=== PATIENT | male | born 1930 | race Asian ===

== ENCOUNTER 2017-09-08 21:57 | Inpatient (IN) | payer MEDICARE, MEDICAID ==
[~2017-09-08] VITALS: Ht 167.6 cm; Wt 72.6 kg
[~2017-09-08 21:57] MED LIST: Glycopyrrolate 0.2mg/ml 1ml Vial ONE; LR 1000ml ONE; Midazolam 2mg/2ml Inj ONE; NS Irrig 1000ml ONE; NS Irrig 4000ml IRRIG ONE; Neostigmine 1mg/ml 10ml Inj ONE; Propofol 200mg/20ml IV ONE; Sterile Water Irrig 1000ml IRRIG ONE; Zemuron 50mg/5ml Inj IV ONE; fentaNYL 100 mcg/2 mL IV ONE
[2017-09-08 22:00] VITALS: BP 118/78
[2017-09-08] MEDS ORDERED: Morphine Sulfate 2mg/ml Inj IVP ONE (22:15)
[2017-09-08 22:37] LABS: APPEARANCE,URINE CLOUDY; BILIRUBIN, URINE NEGATIVE (NEGATIVE); GLUCOSE, URINE (UA) NEGATIVE (NEGATIVE); KETONES,URINE NEGATIVE (NEGATIVE); LEUKOCYTE ESTERASE ,URINE 1+ (NEGATIVE); NITRITE,URINE NEGATIVE (NEGATIVE); PH,URINE 6.5 (4.5-8.0); PROTEIN,URINE 4+ (NEGATIVE); UROBILINOGEN,URINE NORMAL MG/DL (0.0-1.0)
[2017-09-08 22:39] LABS: COLOR,URINE RED
[2017-09-08 22:53] LABS: BASOPHILS % (AUTO) 1.8 % (0.0-2.0); EOSINOPHILS % (AUTO) 2.3 % (0.0-3.0); HEMATOCRIT 36.2 % (42.0-52.0); HEMOGLOBIN 11.4 G/DL (14.2-18.0); MEAN CORPUSCULAR VOLUME 99 FL (80-99); MONOCYTES % (AUTO) 8.6 % (1.0-10.0); NEUTROPHILS % (AUTO) 72.2 % (45.0-75.0); PLATELET COUNT 127 K/UL (150-450); RED BLOOD COUNT 3.65 M/UL (4.70-6.10); RED CELL DISTRIBUTION WIDTH 11.9 % (11.6-14.8); WHITE BLOOD COUNT 3.8 K/UL (4.8-10.8)
[2017-09-08 23:00] VITALS: BP 122/73
[2017-09-08 23:02] LABS: ANION GAP 9 mmol/L (5-15); BLOOD UREA NITROGEN 35 mg/dL (7-18); CALCIUM 7.9 MG/DL (8.5-10.1); CARBON DIOXIDE 23 MMOL/L (21-32); CHLORIDE 107 MMOL/L (98-107); POTASSIUM 4.3 MMOL/L (3.5-5.1); SODIUM 139 MMOL/L (136-145)
[2017-09-08 23:14] LABS: ALANINE AMINOTRANSFERASE 37 U/L (12-78); ALBUMIN 3.9 G/DL (3.4-5.0); ALBUMIN/GLOBULIN RATIO 1.1 (1.0-2.7); ALKALINE PHOSPHATASE 105 U/L (46-116); ASPARTATE AMINO TRANSFERASE 51 U/L (15-37); BILIRUBIN,TOTAL 1.4 MG/DL (0.2-1.0)
[2017-09-08] MEDS ORDERED: cefTRIAXone 1 GM in NS 55 ML IVPB ONE (23:15)
[2017-09-08 23:16] LABS: BILIRUBIN,DIRECT 0.2 MG/DL (0.0-0.3)
[2017-09-08] MEDS ORDERED: NS 55ml IV ONE (23:34)
[2017-09-09 00:05] VITALS: BP 120/75
[2017-09-09] MEDS ORDERED: Morphine Sulfate 2mg/ml Inj IVP PRN (01:00)
[2017-09-09 01:10] VITALS: BP 125/67
[2017-09-09 04:00] VITALS: BP 125/67
--- NOTE | 2017-09-09 04:13 | Emergency Room Report ---
History of Present Illness General Chief Complaint: Male Urogenital Problems Source: Patient Present Illness HPI 87-year-old male presents to ED for evaluation. Patient is brought from restaurant with family. Patient is complaining of urinary retention for last 4 hours. Family states patient has a history of kidney stones. EMS states that patient had blood on the ambulance gurney. Coming from the penis. Patient notes 10 out of 10 sharp lower abdominal pain. Nonradiating. Denies fevers or chills. Denies flank pain. Denies chest pain or shortness of breath. No other aggravating relieving factors. Denies any other associated symptom Allergies: Coded Allergies: No Known Allergies (Unverified , 09/08/17) Patient History Past Medical History: other - kidney stones Past Surgical History: none Pertinent Family History: none Social History: Denies: smoking, alcohol use, drug use Immunizations: UTD Reviewed Nursing Documentation: PMH: Agreed, PSxH: Agreed Nursing Documentation-PMH Past Medical History: No History, Except For Hx Cardiac Problems: Yes - IRREGULAR HEARTBEAT Hx Hypertension: No Hx Pacemaker: No Hx Cancer: No Hx Gastrointestinal Problems: No Hx Neurological Problems: No Review of Systems All Other Systems: negative except mentioned in HPI Physical Exam Vital Signs Date Time Temp Pulse Resp B/P (MAP) Pulse Ox O2 Delivery O2 Flow Rate FiO2 09/08/17 21:46 98.1 92 20 115/83 98 Room Air Sp02 EP Interpretation: reviewed, normal General Appearance: alert, GCS 15, non-toxic, mild distress, thin Head: normocephalic, atraumatic Eyes: bilateral eye normal inspection, bilateral eye PERRL ENT: hearing grossly normal, normal pharynx, no angioedema, normal voice Neck: full range of motion, supple/symm/no masses Respiratory: chest non-tender, lungs clear, normal breath sounds, speaking full sentences Cardiovascular #1: regular rate, rhythm, no edema Cardiovascular #2: 2+ carotid (R), 2+ carotid (L), 2+ radial (R), 2+ radial (L) , 2+ dorsalis pedis (R), 2+ dorsalis pedis (L) Gastrointestinal: normal bowel sounds, soft, non-distended, no guarding, no rebound, tenderness Rectal: deferred Genitourinary: normal inspection, no CVA tenderness Musculoskeletal: back normal, gait/station normal, normal range of motion, non- tender Neurologic: alert, oriented x3, responsive, motor strength/tone normal, sensory intact, speech normal Psychiatric: judgement/insight normal, memory normal, mood/affect normal, no suicidal/homicidal ideation Reflexes: 3+ bicep (R), 3+ bicep (L), 3+ tricep (R), 3+ tricep (L), 3+ knee (R) , 3+ knee (L) Skin: normal color, no rash, warm/dry, well hydrated Lymphatic: no adenopathy Medical Decision Making Diagnostic Impression: Primary Impression: Hematuria Qualified Codes: R31.0 - Gross hematuria Additional Impression: Bladder mass ER Course Hospital Course 87 yo M presents with urinary retention, hematuria Differential diagnoses include: BPH, cystitis, pyelonephritis, kidney stone Clinical course Patient placed on stretcher. lunchroom monitor. After initial history and physical I ordered labs, IV fluids, UA, pain medication and CT scan souza catheter placed Labs - no leukocytosis, Hb/Hct stable, electrolyets ok, UA gross blood, some bacteria CT abdomen and pelvis - bladder mass noted, no kidney stones identified abx given Case discussed with Dr. Lorenz and he agreed to accept the patient to his service for further care and support I feel this is a highly complex case requiring extensive working including EKG/ Rhythm strip, Xray/CT/US, Blood/urine lab work, repeat exams while in ED, and administration of strong opiates/narcotics for pain control, admission to hospital or close patient follow up. Diagnosis - bladder mass, hematuria Patient admitted to floor in serious condition Labs Test 09/08/17 22:10 09/08/17 22:25 Urine Color Red Urine Appearance Cloudy Urine pH 6.5 (4.5-8.0) Urine Specific [place] 1.015 (1.005-1.035) Urine Protein 4+ (NEGATIVE) Urine Glucose (UA) Negative (NEGATIVE) Urine Ketones Negative (NEGATIVE) Urine Occult Blood 4+ (NEGATIVE) Urine Nitrite Negative (NEGATIVE) Urine Bilirubin Negative (NEGATIVE) Urine Urobilinogen Normal MG/DL (0.0-1.0) Urine Leukocyte Esterase 1+ (NEGATIVE) Urine RBC Tntc /HPF (0 - 0) Urine WBC 2-4 /HPF (0 - 0) Urine Squamous Epithelial Cells Occasional /LPF Urine Bacteria Occasional /HPF (NONE) White Blood Count 3.8 K/UL (4.8-10.8) Red Blood Count 3.65 M/UL (4.70-6.10) Hemoglobin 11.4 G/DL (14.2-18.0) Hematocrit 36.2 % (42.0-52.0) Mean Corpuscular Volume 99 FL (80-99) Mean Corpuscular Hemoglobin 31.2 PG (27.0-31.0) Mean Corpuscular Hemoglobin Concent 31.5 G/DL (32.0-36.0) Red Cell Distribution Width 11.9 % (11.6-14.8) Platelet Count 127 K/UL (150-450) Mean Platelet Volume 7.1 FL (6.5-10.1) Neutrophils (%) (Auto) 72.2 % (45.0-75.0) Lymphocytes (%) (Auto) 15.0 % (20.0-45.0) Monocytes (%) (Auto) 8.6 % (1.0-10.0) Eosinophils (%) (Auto) 2.3 % (0.0-3.0) Basophils (%) (Auto) 1.8 % (0.0-2.0) Sodium Level 139 MMOL/L (136-145) Potassium Level 4.3 MMOL/L (3.5-5.1) Chloride Level 107 MMOL/L (98-107) Carbon Dioxide Level 23 MMOL/L (21-32) Anion Gap 9 mmol/L (5-15) Blood Urea Nitrogen 35 mg/dL (7-18) Creatinine 1.0 MG/DL (0.55-1.30) Estimat Glomerular Filtration Rate mL/min (>60) Glucose Level 148 MG/DL (74-106) Calcium Level 7.9 MG/DL (8.5-10.1) Total Bilirubin 1.4 MG/DL (0.2-1.0) Direct Bilirubin 0.2 MG/DL (0.0-0.3) Aspartate Amino Transf (AST/SGOT) 51 U/L (15-37) Alanine Aminotransferase (ALT/SGPT) 37 U/L (12-78) Alkaline Phosphatase 105 U/L (46-116) Total Protein 7.4 G/DL (6.4-8.2) Albumin 3.9 G/DL (3.4-5.0) Globulin 3.5 g/dL Albumin/Globulin Ratio 1.1 (1.0-2.7) Lipase 188 U/L (73-393) CT/MRI/US Diagnostic Results CT/MRI/US Diagnostic Results : Imaging Test Ordered: CT A/P Impression Large bladder mass along the right posterior bladder wall measuring approximately 2.9 x 5.5 centimeters. Findings are suspicious for urothelial neoplasm and bladder carcinoma should be excluded. Last Vital Signs Date Time Temp Pulse Resp B/P (MAP) Pulse Ox O2 Delivery O2 Flow Rate FiO2 09/09/17 01:10 97.6 75 18 125/67 99 Room Air Status: improved Disposition: ADMITTED INPATIENT Condition: Serious Referrals: NOT CHOSEN DARIEL/,REFERRING (PCP) LITTLE PRATER M.D. Sep 09, 2017 04:13
[2017-09-09 07:44] LABS: BASOPHILS % (AUTO) 1.2 % (0.0-2.0); EOSINOPHILS % (AUTO) 2.1 % (0.0-3.0); HEMATOCRIT 32.8 % (42.0-52.0); HEMOGLOBIN 10.7 G/DL (14.2-18.0); LYMPHOCYTES % (AUTO) 27.6 % (20.0-45.0); MEAN CORPUSCULAR VOLUME 99 FL (80-99); MONOCYTES % (AUTO) 12.3 % (1.0-10.0); NEUTROPHILS % (AUTO) 56.7 % (45.0-75.0); PLATELET COUNT 111 K/UL (150-450); RED BLOOD COUNT 3.32 M/UL (4.70-6.10); WHITE BLOOD COUNT 4.3 K/UL (4.8-10.8)
[2017-09-09 07:49] LABS: ANION GAP 9 mmol/L (5-15); BLOOD UREA NITROGEN 33 mg/dL (7-18); CALCIUM 7.8 MG/DL (8.5-10.1); CARBON DIOXIDE 24 MMOL/L (21-32); CHLORIDE 109 MMOL/L (98-107); CREATININE 0.8 MG/DL (0.55-1.30); POTASSIUM 4.3 MMOL/L (3.5-5.1); SODIUM 142 MMOL/L (136-145)
[2017-09-09 08:00] VITALS: BP 126/59
--- NOTE | 2017-09-09 11:22 | Infectious Diseases Prog Note ---
Assessment/Plan Problems: (1) Pyelonephritis Assessment & Plan: will send urine culture and start ceftriaxon empiric coverage, CT abdomen ruled out abscess and stone (2) Hematuria Assessment & Plan: rule out malignancy VS stone , recommend urologist for further evaluation (3) Urinary retention Assessment & Plan: Rule out obstruction , BPH VS stone. will order renal US , recommend urology consult Subjective Allergies: Coded Allergies: No Known Allergies (Unverified , 09/08/17) Objective Vital Signs Last 24 Hour Vital Signs Date Time Temp Pulse Resp B/P (MAP) Pulse Ox O2 Delivery O2 Flow Rate FiO2 09/09/17 08:00 97.5 73 20 126/59 99 Room Air 09/09/17 04:00 97.2 62 16 125/67 98 Room Air 09/09/17 01:10 97.6 75 18 125/67 99 Room Air 09/09/17 01:03 98.3 82 16 120/75 98 Room Air 09/09/17 00:05 98.3 82 16 120/75 98 Room Air 09/08/17 23:20 98.0 09/08/17 23:00 98.4 80 16 122/73 98 Room Air 09/08/17 22:00 98.1 88 18 118/78 99 Room Air 09/08/17 21:46 98.1 92 20 115/83 98 Room Air Height (Feet): 5 Height (Inches): 8.00 Weight (Pounds): 160 Laboratory Tests Test 09/08/17 22:10 09/08/17 22:25 09/09/17 05:25 Urine Color Red Urine Appearance Cloudy Urine pH 6.5 (4.5-8.0) Urine Specific [place] 1.015 (1.005-1.035) Urine Protein 4+ (NEGATIVE) H Urine Glucose (UA) Negative (NEGATIVE) Urine Ketones Negative (NEGATIVE) Urine Occult Blood 4+ (NEGATIVE) H Urine Nitrite Negative (NEGATIVE) Urine Bilirubin Negative (NEGATIVE) Urine Urobilinogen Normal MG/DL (0.0-1.0) Urine Leukocyte Esterase 1+ (NEGATIVE) H Urine RBC Tntc /HPF (0 - 0) H Urine WBC 2-4 /HPF (0 - 0) Urine Squamous Epithelial Cells Occasional /LPF Urine Bacteria Occasional /HPF (NONE) White Blood Count 3.8 K/UL (4.8-10.8) L 4.3 K/UL (4.8-10.8) L Red Blood Count 3.65 M/UL (4.70-6.10) L 3.32 M/UL (4.70-6.10) L Hemoglobin 11.4 G/DL (14.2-18.0) L 10.7 G/DL (14.2-18.0) L Hematocrit 36.2 % (42.0-52.0) L 32.8 % (42.0-52.0) L Mean Corpuscular Volume 99 FL (80-99) 99 FL (80-99) Mean Corpuscular Hemoglobin 31.2 PG (27.0-31.0) H 32.3 PG (27.0-31.0) H Mean Corpuscular Hemoglobin Concent 31.5 G/DL (32.0-36.0) L 32.7 G/DL (32.0-36.0) Red Cell Distribution Width 11.9 % (11.6-14.8) 12.0 % (11.6-14.8) Platelet Count 127 K/UL (150-450) L 111 K/UL (150-450) L Mean Platelet Volume 7.1 FL (6.5-10.1) 7.0 FL (6.5-10.1) Neutrophils (%) (Auto) 72.2 % (45.0-75.0) 56.7 % (45.0-75.0) Lymphocytes (%) (Auto) 15.0 % (20.0-45.0) L 27.6 % (20.0-45.0) Monocytes (%) (Auto) 8.6 % (1.0-10.0) 12.3 % (1.0-10.0) H Eosinophils (%) (Auto) 2.3 % (0.0-3.0) 2.1 % (0.0-3.0) Basophils (%) (Auto) 1.8 % (0.0-2.0) 1.2 % (0.0-2.0) Sodium Level 139 MMOL/L (136-145) 142 MMOL/L (136-145) Potassium Level 4.3 MMOL/L (3.5-5.1) 4.3 MMOL/L (3.5-5.1) Chloride Level 107 MMOL/L (98-107) 109 MMOL/L (98-107) H Carbon Dioxide Level 23 MMOL/L (21-32) 24 MMOL/L (21-32) Anion Gap 9 mmol/L (5-15) 9 mmol/L (5-15) Blood Urea Nitrogen 35 mg/dL (7-18) H 33 mg/dL (7-18) H Creatinine 1.0 MG/DL (0.55-1.30) 0.8 MG/DL (0.55-1.30) Estimat Glomerular Filtration Rate mL/min (>60) mL/min (>60) Glucose Level 148 MG/DL (74-106) H 96 MG/DL (74-106) Calcium Level 7.9 MG/DL (8.5-10.1) L 7.8 MG/DL (8.5-10.1) L Total Bilirubin 1.4 MG/DL (0.2-1.0) H Direct Bilirubin 0.2 MG/DL (0.0-0.3) Aspartate Amino Transf (AST/SGOT) 51 U/L (15-37) H Alanine Aminotransferase (ALT/SGPT) 37 U/L (12-78) Alkaline Phosphatase 105 U/L (46-116) Total Protein 7.4 G/DL (6.4-8.2) Albumin 3.9 G/DL (3.4-5.0) Globulin 3.5 g/dL Albumin/Globulin Ratio 1.1 (1.0-2.7) Lipase 188 U/L (73-393) Current Medications Medications (Trade) Dose Ordered Sig/Josselin Route PRN Reason Start Time Stop Time Status Last Admin Dose Admin Acetaminophen (Tylenol) 650 mg Q4H PRN ORAL Mild Pain/Temp > 100.5 09/09/17 01:00 10/09/17 00:59 Ceftriaxone Sodium 1 gm/ Dextrose 55 ml @ 110 mls/hr Q24H IVPB 09/09/17 21:00 09/16/17 20:59 Dextrose (Dextrose 50%) STAT PRN IV Hypoglycemia 09/09/17 01:00 10/09/17 00:59 Morphine Sulfate (Morphine Sulfate) 2 mg Q4H PRN IVP MOD-SEVERE PAIN 4-10 09/09/17 01:00 09/16/17 00:59 Ondansetron HCl (Zofran) 4 mg Q6H PRN IVP Nausea & Vomiting 09/09/17 01:00 10/09/17 00:59 Sodium Chloride 1,000 ml @ 80 mls/hr [id number] IV 09/09/17 09:00 10/09/17 08:59 Michelle Villarreal M.D. Sep 09, 2017 11:22
--- NOTE | 2017-09-09 12:01 | History and Physical ---
History of Present Illness General Date patient seen: Sep 09, 2017 Reason for Hospitalization: Male Urogenital Problems Present Illness HPI 87 y/o male with PMH for HTN, dyslipidemia, and cardiac arrhythmia who presented to the ED c/o abdominal pain. Patient also reported hematuria and urinary retention. Per family report, he has history of renal stones. He denies flank pain, nausea or vomiting. In the ED, patient is noted to have bladder mass on CT A/P with clots. [place] catheter inserted with gross hematuria. Patient continues to have lower abdominal pain. Allergies: Coded Allergies: No Known Allergies (Unverified , 09/08/17) Patient History History Provided By: Patient, Medical Record Healthcare decision maker Resuscitation status Advanced Directive on File Past Medical/Surgical History Past Medical/Surgical History: (1) HTN (hypertension) Review of Systems All Other Systems: negative except mentioned in HPI Physical Exam General Appearance: no apparent distress, alert, thin HEENT: normocephalic, atraumatic Neck: supple Respiratory/Chest: lungs clear Cardiovascular/Chest: normal rate, regular rhythm Abdomen: soft, tender Extremities: no edema Neurologic: alert, oriented x 3 Last 24 Hour Vital Signs Date Time Temp Pulse Resp B/P (MAP) Pulse Ox O2 Delivery O2 Flow Rate FiO2 09/09/17 08:00 97.5 73 20 126/59 99 Room Air 09/09/17 04:00 97.2 62 16 125/67 98 Room Air 09/09/17 01:10 97.6 75 18 125/67 99 Room Air 09/09/17 01:03 98.3 82 16 120/75 98 Room Air 09/09/17 00:05 98.3 82 16 120/75 98 Room Air 09/08/17 23:20 98.0 09/08/17 23:00 98.4 80 16 122/73 98 Room Air 09/08/17 22:00 98.1 88 18 118/78 99 Room Air 09/08/17 21:46 98.1 92 20 115/83 98 Room Air Intake and Output 09/08/17 09/09/17 19:00 07:00 Intake Total 1295 ml Output Total 750 ml Balance 545 ml Intake Oral 240 ml IV Total 1055 ml Output Urine Total 750 ml # Voids 1 Laboratory Tests Test 09/08/17 22:10 09/08/17 22:25 09/09/17 05:25 Urine Color Red Urine Appearance Cloudy Urine pH 6.5 (4.5-8.0) Urine Specific [place] 1.015 (1.005-1.035) Urine Protein 4+ (NEGATIVE) H Urine Glucose (UA) Negative (NEGATIVE) Urine Ketones Negative (NEGATIVE) Urine Occult Blood 4+ (NEGATIVE) H Urine Nitrite Negative (NEGATIVE) Urine Bilirubin Negative (NEGATIVE) Urine Urobilinogen Normal MG/DL (0.0-1.0) Urine Leukocyte Esterase 1+ (NEGATIVE) H Urine RBC Tntc /HPF (0 - 0) H Urine WBC 2-4 /HPF (0 - 0) Urine Squamous Epithelial Cells Occasional /LPF Urine Bacteria Occasional /HPF (NONE) White Blood Count 3.8 K/UL (4.8-10.8) L 4.3 K/UL (4.8-10.8) L Red Blood Count 3.65 M/UL (4.70-6.10) L 3.32 M/UL (4.70-6.10) L Hemoglobin 11.4 G/DL (14.2-18.0) L 10.7 G/DL (14.2-18.0) L Hematocrit 36.2 % (42.0-52.0) L 32.8 % (42.0-52.0) L Mean Corpuscular Volume 99 FL (80-99) 99 FL (80-99) Mean Corpuscular Hemoglobin 31.2 PG (27.0-31.0) H 32.3 PG (27.0-31.0) H Mean Corpuscular Hemoglobin Concent 31.5 G/DL (32.0-36.0) L 32.7 G/DL (32.0-36.0) Red Cell Distribution Width 11.9 % (11.6-14.8) 12.0 % (11.6-14.8) Platelet Count 127 K/UL (150-450) L 111 K/UL (150-450) L Mean Platelet Volume 7.1 FL (6.5-10.1) 7.0 FL (6.5-10.1) Neutrophils (%) (Auto) 72.2 % (45.0-75.0) 56.7 % (45.0-75.0) Lymphocytes (%) (Auto) 15.0 % (20.0-45.0) L 27.6 % (20.0-45.0) Monocytes (%) (Auto) 8.6 % (1.0-10.0) 12.3 % (1.0-10.0) H Eosinophils (%) (Auto) 2.3 % (0.0-3.0) 2.1 % (0.0-3.0) Basophils (%) (Auto) 1.8 % (0.0-2.0) 1.2 % (0.0-2.0) Sodium Level 139 MMOL/L (136-145) 142 MMOL/L (136-145) Potassium Level 4.3 MMOL/L (3.5-5.1) 4.3 MMOL/L (3.5-5.1) Chloride Level 107 MMOL/L (98-107) 109 MMOL/L (98-107) H Carbon Dioxide Level 23 MMOL/L (21-32) 24 MMOL/L (21-32) Anion Gap 9 mmol/L (5-15) 9 mmol/L (5-15) Blood Urea Nitrogen 35 mg/dL (7-18) H 33 mg/dL (7-18) H Creatinine 1.0 MG/DL (0.55-1.30) 0.8 MG/DL (0.55-1.30) Estimat Glomerular Filtration Rate mL/min (>60) mL/min (>60) Glucose Level 148 MG/DL (74-106) H 96 MG/DL (74-106) Calcium Level 7.9 MG/DL (8.5-10.1) L 7.8 MG/DL (8.5-10.1) L Total Bilirubin 1.4 MG/DL (0.2-1.0) H Direct Bilirubin 0.2 MG/DL (0.0-0.3) Aspartate Amino Transf (AST/SGOT) 51 U/L (15-37) H Alanine Aminotransferase (ALT/SGPT) 37 U/L (12-78) Alkaline Phosphatase 105 U/L (46-116) Total Protein 7.4 G/DL (6.4-8.2) Albumin 3.9 G/DL (3.4-5.0) Globulin 3.5 g/dL Albumin/Globulin Ratio 1.1 (1.0-2.7) Lipase 188 U/L (73-393) Height (Feet): 5 Height (Inches): 8.00 Weight (Pounds): 160 Medications Current Medications Medications (Trade) Dose Ordered Sig/Josselni Route PRN Reason Start Time Stop Time Status Last Admin Dose Admin Acetaminophen (Tylenol) 650 mg Q4H PRN ORAL Mild Pain/Temp > 100.5 09/09/17 01:00 10/09/17 00:59 Ceftriaxone Sodium 1 gm/ Dextrose 55 ml @ 110 mls/hr Q24H IVPB 09/09/17 21:00 09/16/17 20:59 Dextrose (Dextrose 50%) STAT PRN IV Hypoglycemia 09/09/17 01:00 10/09/17 00:59 Morphine Sulfate (Morphine Sulfate) 2 mg Q4H PRN IVP MOD-SEVERE PAIN 4-10 09/09/17 01:00 09/16/17 00:59 Ondansetron HCl (Zofran) 4 mg Q6H PRN IVP Nausea & Vomiting 09/09/17 01:00 10/09/17 00:59 Potassium Chloride 10 meq/ Dextrose/Sodium Chloride 1,005 ml @ 75 mls/hr [id number] IV 09/09/17 13:00 10/09/17 12:59 Assessment/Plan Problem List: (1) Bladder mass ICD Codes: N32.89 - Other specified disorders of bladder SNOMED: 997082714 (2) Hematuria ICD Codes: R31.9 - Hematuria, unspecified SNOMED: 30996432 Qualifiers: Qualified Codes: R31.0 - Gross hematuria (3) Urinary retention ICD Codes: R33.9 - Retention of urine, unspecified SNOMED: 434132610 (4) HTN (hypertension) ICD Codes: I10 - Essential (primary) hypertension SNOMED: 49944743 (5) Arrhythmia ICD Codes: I49.9 - Cardiac arrhythmia, unspecified SNOMED: 575813376 Assessment/Plan Resume home meds. Hold Eliquis. Patient states that he has not taken his home medications in 2 days (since mon). He confirms not taking Eliquis for last 2 days. IVF. Keep NPO for possible surgery. Get insurance auth for procedure. Pain management. ID consulted for possible UTI/Pyelo. Dr. Bamshad now following. [place] cath in place. Bladder irrigation. Will need emergent cystoscopy and possible TURP and bladder mass resection. Will check preoperative PT/PTT, CXR, ECG. Cardio consulted for cardiac clearance. Dr. Tirado called. D/w Dr. Lorenz who agrees with plan. JO-ANN GONZALEZ Sep 09, 2017 12:01
[2017-09-09 12:07] LABS: INR 1.1 (0.9-1.1)
[2017-09-09 12:29] VITALS: BP 148/73
[2017-09-09] MEDS ORDERED: Potassium Chloride 10 MEQ in D5 1/2NS 1,000 ML IV SCH (13:00)
--- NOTE | 2017-09-09 15:21 | Cardiac Electrophysiology PN ---
Subjective Subjective [id number].Transfer to tele. Stat ECHO. Objective Last 24 Hour Vital Signs Date Time Temp Pulse Resp B/P (MAP) Pulse Ox O2 Delivery O2 Flow Rate FiO2 09/09/17 12:29 97.2 68 20 148/73 100 Room Air 09/09/17 08:00 97.5 73 20 126/59 99 Room Air 09/09/17 04:00 97.2 62 16 125/67 98 Room Air 09/09/17 01:10 97.6 75 18 125/67 99 Room Air 09/09/17 01:03 98.3 82 16 120/75 98 Room Air 09/09/17 00:05 98.3 82 16 120/75 98 Room Air 09/08/17 23:20 98.0 09/08/17 23:00 98.4 80 16 122/73 98 Room Air 09/08/17 22:00 98.1 88 18 118/78 99 Room Air 09/08/17 21:46 98.1 92 20 115/83 98 Room Air Intake and Output 09/08/17 09/09/17 19:00 07:00 Intake Total 1295 ml Output Total 750 ml Balance 545 ml Intake Oral 240 ml IV Total 1055 ml Output Urine Total 750 ml # Voids 1 Laboratory Tests Test 09/08/17 22:10 09/08/17 22:25 09/09/17 05:25 09/09/17 11:45 Urine Color Red Urine Appearance Cloudy Urine pH 6.5 (4.5-8.0) Urine Specific [place] 1.015 (1.005-1.035) Urine Protein 4+ (NEGATIVE) H Urine Glucose (UA) Negative (NEGATIVE) Urine Ketones Negative (NEGATIVE) Urine Occult Blood 4+ (NEGATIVE) H Urine Nitrite Negative (NEGATIVE) Urine Bilirubin Negative (NEGATIVE) Urine Urobilinogen Normal MG/DL (0.0-1.0) Urine Leukocyte Esterase 1+ (NEGATIVE) H Urine RBC Tntc /HPF (0 - 0) H Urine WBC 2-4 /HPF (0 - 0) Urine Squamous Epithelial Cells Occasional /LPF Urine Bacteria Occasional /HPF (NONE) White Blood Count 3.8 K/UL (4.8-10.8) L 4.3 K/UL (4.8-10.8) L Red Blood Count 3.65 M/UL (4.70-6.10) L 3.32 M/UL (4.70-6.10) L Hemoglobin 11.4 G/DL (14.2-18.0) L 10.7 G/DL (14.2-18.0) L Hematocrit 36.2 % (42.0-52.0) L 32.8 % (42.0-52.0) L Mean Corpuscular Volume 99 FL (80-99) 99 FL (80-99) Mean Corpuscular Hemoglobin 31.2 PG (27.0-31.0) H 32.3 PG (27.0-31.0) H Mean Corpuscular Hemoglobin Concent 31.5 G/DL (32.0-36.0) L 32.7 G/DL (32.0-36.0) Red Cell Distribution Width 11.9 % (11.6-14.8) 12.0 % (11.6-14.8) Platelet Count 127 K/UL (150-450) L 111 K/UL (150-450) L Mean Platelet Volume 7.1 FL (6.5-10.1) 7.0 FL (6.5-10.1) Neutrophils (%) (Auto) 72.2 % (45.0-75.0) 56.7 % (45.0-75.0) Lymphocytes (%) (Auto) 15.0 % (20.0-45.0) L 27.6 % (20.0-45.0) Monocytes (%) (Auto) 8.6 % (1.0-10.0) 12.3 % (1.0-10.0) H Eosinophils (%) (Auto) 2.3 % (0.0-3.0) 2.1 % (0.0-3.0) Basophils (%) (Auto) 1.8 % (0.0-2.0) 1.2 % (0.0-2.0) Sodium Level 139 MMOL/L (136-145) 142 MMOL/L (136-145) Potassium Level 4.3 MMOL/L (3.5-5.1) 4.3 MMOL/L (3.5-5.1) Chloride Level 107 MMOL/L (98-107) 109 MMOL/L (98-107) H Carbon Dioxide Level 23 MMOL/L (21-32) 24 MMOL/L (21-32) Anion Gap 9 mmol/L (5-15) 9 mmol/L (5-15) Blood Urea Nitrogen 35 mg/dL (7-18) H 33 mg/dL (7-18) H Creatinine 1.0 MG/DL (0.55-1.30) 0.8 MG/DL (0.55-1.30) Estimat Glomerular Filtration Rate mL/min (>60) mL/min (>60) Glucose Level 148 MG/DL (74-106) H 96 MG/DL (74-106) Calcium Level 7.9 MG/DL (8.5-10.1) L 7.8 MG/DL (8.5-10.1) L Total Bilirubin 1.4 MG/DL (0.2-1.0) H Direct Bilirubin 0.2 MG/DL (0.0-0.3) Aspartate Amino Transf (AST/SGOT) 51 U/L (15-37) H Alanine Aminotransferase (ALT/SGPT) 37 U/L (12-78) Alkaline Phosphatase 105 U/L (46-116) Total Protein 7.4 G/DL (6.4-8.2) Albumin 3.9 G/DL (3.4-5.0) Globulin 3.5 g/dL Albumin/Globulin Ratio 1.1 (1.0-2.7) Lipase 188 U/L (73-393) Prothrombin Time 11.1 SEC (9.30-11.50) Prothromb Time International Ratio 1.1 (0.9-1.1) Activated Partial Thromboplast Time 28 SEC (23-33) ANIYAH LANGLEY Sep 09, 2017 15:21
[2017-09-09] MEDS ORDERED: METOPROLOL TART25 MG ORAL (15:57)
[2017-09-09] MEDS ORDERED: LOSARTAN POTASS25 MG ORAL (15:57)
[2017-09-09] MEDS ORDERED: FUROSEMIDE40 MG ORAL (15:57)
[2017-09-09] MEDS ORDERED: ELIQUIS2.5 MG PO (15:57)
[2017-09-09] MEDS ORDERED: LIPITOR10 MG ORAL (15:57)
--- NOTE | 2017-09-09 18:15 | Consultation ---
DATE OF CONSULTATION: 09/09/2017 CONSULTING PHYSICIAN: Jesse Vegas M.D. REFERRING PHYSICIAN: Cruz Lorenz M.D. REASON FOR CONSULTATION: Evaluation of gross hematuria. HISTORY OF PRESENT ILLNESS: This is an 87-year-old male, who came to the hospital because of retention and hematuria. [place] was placed. He has had clots. He had a CT scan that showed a bladder mass. Urology evaluation requested. PAST MEDICAL HISTORY: Significant for history of coronary artery disease. Other history is unknown. PAST SURGICAL HISTORY: Unknown. CURRENT MEDICATIONS: In the hospital, the patient is on Toprol, Cozaar, Rocephin, Lipitor, morphine, and Tylenol. Apparently at home, he has been on Eliquis. However, the patient states that he has not taken Eliquis for at least 2 days. REVIEW OF SYSTEMS: Apparently, he had kidney stones in the past. PHYSICAL EXAMINATION: GENERAL: An elderly male. VITAL SIGNS: Temperature is 97.5 degrees, blood pressure is 126/59. ABDOMEN: Shows some suprapubic fullness. There is a 15-[place]. Urine is grossly dark bloody. LABORATORY DATA: White count is 4.3, hemoglobin 10.7, and platelets are 111. BUN is 33, creatinine 0.8. There is no PT, PTT. UA shows 4+ protein, too numerous to count RBCs, 2 to 4 WBCs, 1+ leukocyte esterase. DIAGNOSTIC IMAGING STUDIES: The patient apparently did have a CT scan, the final report is pending. However, apparently the preliminary report did show about a 5 cm bladder mass on the right posterior bladder wall. IMPRESSION: 1. Gross hematuria. 2. Bladder mass, rule out bladder carcinoma. 3. Pyuria. 4. Proteinuria. 5. Urinary retention. PLAN AND DISCUSSION: The patient was evaluated at the bedside. The existing [place] catheter was occluded and was unable to be irrigated. As such, it was removed. A 24-[place] catheter was placed. I was able to irrigate clots out and the patient was started on continuous bladder irrigation. I did talk to the patient extensively through an chain sales consultant. 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 He will need to have transurethral resection and fulguration of the tumor to control the bleeding, most likely needs to be done on an urgent basis. He has been on Eliquis at home. However, he states that he has not taken any medications for two days, and as such, I did talk to the pharmacy and with primary care doctor, and probably within the next 24 hours, the effect should be gone and he should be okay for having procedure. I will set him up for a TURBT. Again, this was discussed with the patient in extensive detail including possible risks and complications. Thank you for this consultation. Jesse Vegas M.D. DR: Rai JOB#: [id number] CC:
[2017-09-09] MEDS: Potassium Chloride 10 MEQ in D5 1/2NS 1,000 ML IV SCH (19:00)
[2017-09-09 19:45] LABS: HEMOGLOBIN 10.1 G/DL (14.2-18.0); LYMPHOCYTES % (AUTO) 15.7 % (20.0-45.0); MEAN CORPUSCULAR VOLUME 98 FL (80-99); MONOCYTES % (AUTO) 10.4 % (1.0-10.0); NEUTROPHILS % (AUTO) 71.9 % (45.0-75.0); PLATELET COUNT 112 K/UL (150-450); RED BLOOD COUNT 3.37 M/UL (4.70-6.10); RED CELL DISTRIBUTION WIDTH 11.7 % (11.6-14.8); WHITE BLOOD COUNT 5.9 K/UL (4.8-10.8)
[2017-09-09 20:00] VITALS: BP 145/69
[2017-09-09] MEDS: cefTRIAXone 1 GM in D5W 55 ML IVPB SCH (20:21)
--- NOTE | 2017-09-09 20:30 | Consultation ---
DATE OF CONSULTATION: 09/09/2017 INFECTIOUS DISEASE CONSULTATION CONSULTING PHYSICIAN: Michelle Villarreal M.D. REQUESTING PHYSICIAN: Cruz Lorenz M.D. REASON FOR CONSULTATION: Pyelonephritis, hematuria rule out genitourinary abscess, and recommendation for antibiotics treatment. HISTORY OF PRESENT ILLNESS: The patient is an 87-year-old male with past medical history of kidney stone and atrial fibrillation, presented to [facility] with urinary retention for four hours. The patient was brought in from restaurant by his family who stated that he had a history of kidney stone. The patient had blood in his urethra coming out of the penis. He had significant sharp suprapubic pain 10/10. Denied fever or chills. Denied any flank pain. No shortness of breath. The patient's temperature was 98.1 in the emergency room saturating 98% on room air. Urinalysis showed significant infection. So, he was started on ceftriaxone and I was consulted by the primary provider team for antibiotics treatment and further management. As of note, the patient is a poor historian, cannot provide good history. History was mainly obtained from the medical record. PAST MEDICAL HISTORY: Significant for kidney stones and regular heart beats. PAST SURGICAL HISTORY: Negative. ALLERGIES: He has no known drug allergy. MEDICATIONS: The patient was started on ceftriaxone in the emergency room. For the rest of his medications, please refer to MAR. REVIEW OF SYSTEMS: Unable to obtain. The patient is a poor historian. FAMILY HISTORY: Noncontributory. SOCIAL HISTORY: The patient lives at home with family. Denied using any drugs, tobacco, or alcohol. PHYSICAL EXAMINATION: VITAL SIGNS: Temperature 97.2, pulse 68, respirations 20, blood pressure 148/73, and saturation 100% on room air. GENERAL: Elderly male, cachectic, lying in bed, with a 3-way Boston catheter in place and draining bloody urine, awake, alert, not in distress. HEENT: Normocephalic and atraumatic. Pupils are reactive to light equally. Moist oral mucosa. No exudate or thrush. NECK: Supple. No lymphadenopathy. CARDIOVASCULAR: Regular rate and rhythm. No murmur or gallop. LUNGS: Clear bilaterally. Diminished breathing sounds at the bases. ABDOMEN: Soft. Tender in the suprapubic area. No rebound. No ascites. No organomegaly. No flank tenderness. EXTREMITIES: No edema or cyanosis. GENITOURINARY: He has a Boston catheter 3-way in with bloody fluid coming out of it. LABORATORY DATA: Labs showed white count of 4.3, hemoglobin of 10.7, and platelet count of 111. BUN of 33 and creatinine of 0.8. IMAGING STUDIES: CT scan of the abdomen and pelvis showed bladder mass noted. No kidney stone identified. ASSESSMENT AND RECOMMENDATION: 1. Pyelonephritis, suspect acute due to bladder mass and bladder outlet obstruction. We will send urine culture. Start the patient on ceftriaxone empiric coverage. Obtain renal ultrasound to rule out abscess versus stone. 2. Hematuria rule out malignant process due to bladder mass versus stone. Urology has evaluated the patient. He will have cystoscopy with possible biopsy for further evaluation and management. 3. Urinary retention due to bladder mass status post Boston catheter placement. Urology team is following to operating room tomorrow for cystoscopy. Thank you for the consult. Infectious Disease will continue to follow. Michelle Villarreal M.D. DR: SIENNA JOB#: [id number] CC:
[2017-09-09] MEDS ORDERED: cefTRIAXone 1 GM in D5W 55 ML IVPB SCH (21:00)
--- NOTE | 2017-09-09 23:45 | Consultation ---
DATE OF CONSULTATION: 09/09/2017 CARDIOLOGY CONSULTATION CONSULTING PHYSICIAN: Dimitrios Tirado M.D. REFERRING PHYSICIAN: Cruz Lorenz M.D. REASON FOR CONSULTATION: Management of atrial fibrillation and preoperative clearance and hypertension. HISTORY OF PRESENT ILLNESS: The patient is a very pleasant 87-year-old Hungarian gentleman with a history of hypertension, hyperlipidemia, and history of atrial fibrillation, who was brought to the emergency room with abdominal pain, hematuria, and urinary retention. The patient has a history of kidney stones. The patient was on anticoagulation with Eliquis prior to the admission. The patient was admitted and underwent a 3-way Boston placement by Dr. Vegas. Cardiology clearance requested for preoperative evaluation. At the time of my evaluation, the patient denies any chest pain, palpitation, or shortness of breath. REVIEW OF SYSTEMS: Negative other than what was mentioned in the history of present illness. PAST MEDICAL HISTORY: 1. Hypertension. 2. Hyperlipidemia. 3. Atrial fibrillation. FAMILY HISTORY: Noncontributory. MEDICATIONS AT HOME: Eliquis. Currently, the patient is on Toprol-XL 50 mg daily and losartan 25 mg daily and Lipitor. PHYSICAL EXAMINATION: VITAL SIGNS: Blood pressure is 142/72, pulse 62, respirations 18, and he is afebrile. HEAD AND NECK: No JVD. LUNGS: Clear. CARDIOVASCULAR: Irregular S1 and S2 with no gallop or murmur. ABDOMEN: Soft and nontender. EXTREMITIES: No pitting edema. GENITOURINARY: He has a Boston catheter with active hematuria ongoing. LABORATORY AND DIAGNOSTIC DATA: His EKG shows atrial fibrillation with slow ventricular response, rate of 58. His labs show white count of 4.7, hematocrit 10.7, hematocrit 32.8, and platelet count of 111. Sodium 142, potassium 4.3, BUN of 33, creatinine 0.5, and glucose of 96. INR is 1.1. Urinalysis showed too numerous to count RBC, 4+ blood. ASSESSMENT AND PLAN: 1. Hypertension. Continue Toprol-XL 50 mg daily and Cozaar 25 mg daily. 2. Atrial fibrillation. The patient is obviously off anticoagulation in view of active hematuria. Rate is controlled on Toprol-XL 50 mg daily transfer the patient to telemetry. 3. Active hematuria. The patient denies any prior myocardial infarction or coronary artery disease or congestive heart failure. We will certainly going to get an echocardiogram and transfer him to telemetry. Depending on result of the echocardiogram, the patient likely will be cleared to undergo a cystoscopy unless echo significantly abnormal. 4. Active hematuria. The patient is still on antibiotic. Management per Dr. Villarreal for pyelonephritis. Thank you for very much, Dr. Lorenz, for allowing me to participate in the care of this patient. Please do not hesitate to contact me for any questions regarding my evaluation. Dimitrios Tirado M.D. DR: SHILO JOB#: [id number] CC:
[2017-09-10] VITALS (11 sets, daily range): BP systolic 102–152; BP diastolic 54–105
[2017-09-10] MEDS ORDERED: Glycopyrrolate 0.2mg/ml 1ml Vial ONE (08:00)
--- NOTE | 2017-09-10 08:22 | Pre-Procedure Note/Attestation ---
Pre-Procedure Note/Attestation Complete Prior to Procedure Planned Procedure: bilateral Procedure Narrative: cystoscopy, TURBT, poss TURP, bilateral RPG, poss ureteral stent Indications for Procedure Pre-Operative Diagnosis: gross hematuria, bladder tumor Attestation I attest that I discussed the nature of the procedure; its benefits; risks and complications; and alternatives (and the risks and benefits of such alternatives ), prior to the procedure, with the patient (or the patient's legal eligibility services representative). I attest that, if there was a reasonable possibility of needing a blood transfusion, the patient (or the patient's legal eligibility services representative) was given the [facility] standardized written summary, pursuant to the [employer] [place] Blood Safety Act ([place] Health and Safety Code # 1645, as amended). I attest that I re-evaluated the patient just prior to the surgery and that there has been no change in the patient's H&P, except as documented below: see progress notes NICHELLE AGUIRRE Sep 10, 2017 08:21
[2017-09-10] MEDS: Potassium Chloride 10 MEQ in D5 1/2NS 1,000 ML IV SCH ×2 (08:24→21:52)
[2017-09-10 08:45] LABS: EOSINOPHILS % (AUTO) 1.2 % (0.0-3.0); HEMATOCRIT 32.4 % (42.0-52.0); HEMOGLOBIN 10.7 G/DL (14.2-18.0); MEAN CORPUSCULAR VOLUME 97 FL (80-99); MONOCYTES % (AUTO) 9.2 % (1.0-10.0); NEUTROPHILS % (AUTO) 71.5 % (45.0-75.0); PLATELET COUNT 116 K/UL (150-450); RED BLOOD COUNT 3.34 M/UL (4.70-6.10); WHITE BLOOD COUNT 6.1 K/UL (4.8-10.8)
[2017-09-10] MEDS ORDERED: cefOXitin 1gm Inj ONE (08:46)
[2017-09-10] MEDS ORDERED: Iothalamate Meglumine 60% 30ML INJ ONE (08:46)
--- NOTE | 2017-09-10 08:55 | Nephrology Progress Note ---
Assessment/Plan Problem List: (1) Bladder mass (2) Hematuria (3) Urinary retention (4) HTN (hypertension) (5) Arrhythmia Plan pending TURP. monitor labs. d/w Dr. Vegas and Dr. Lorenz. Subjective Subjective still with persistent hematuria. pending surgery. Objective Objective Last 24 Hour Vital Signs Date Time Temp Pulse Resp B/P (MAP) Pulse Ox O2 Delivery O2 Flow Rate FiO2 09/10/17 08:00 97.5 56 20 152/71 95 Room Air 09/10/17 04:00 69 09/10/17 04:00 97.7 58 20 131/64 100 Room Air 09/10/17 00:00 97.5 100 20 134/57 Room Air 09/10/17 00:00 57 09/09/17 20:00 98.1 52 20 145/69 100 Room Air 09/09/17 20:00 61 09/09/17 17:00 73 09/09/17 12:29 97.2 68 20 148/73 100 Room Air Intake and Output 09/09/17 09/10/17 19:00 07:00 Intake Total 390 ml Output Total 250 ml Balance 140 ml Intake Oral 240 ml IV Total 150 ml Output Urine Total 250 ml Laboratory Tests 09/09/17 11:45: Prothrombin Time 11.1, Prothromb Time International Ratio 1.1, Activated Partial Thromboplast Time 28 09/09/17 18:48: White Blood Count 5.9, Red Blood Count 3.37L, Hemoglobin 10.1L, Hematocrit 33.0L , Mean Corpuscular Volume 98, Mean Corpuscular Hemoglobin 30.1, Mean Corpuscular Hemoglobin Concent 30.7L, Red Cell Distribution Width 11.7, Platelet Count 112L, Mean Platelet Volume 7.0, Neutrophils (%) (Auto) 71.9, Lymphocytes (%) (Auto) 15.7L, Monocytes (%) (Auto) 10.4H, Eosinophils (%) (Auto ) 1.0, Basophils (%) (Auto) 1.0 09/10/17 08:24: White Blood Count 6.1, Red Blood Count 3.34L, Hemoglobin 10.7L, Hematocrit 32.4L , Mean Corpuscular Volume 97, Mean Corpuscular Hemoglobin 32.1H, Mean Corpuscular Hemoglobin Concent 33.1, Red Cell Distribution Width 12.0, Platelet Count 116L, Mean Platelet Volume 7.1, Neutrophils (%) (Auto) 71.5, Lymphocytes ( %) (Auto) 17.0L, Monocytes (%) (Auto) 9.2, Eosinophils (%) (Auto) 1.2, Basophils (%) (Auto) 1.0 Height (Feet): 5 Height (Inches): 6.00 Weight (Pounds): 160 General Appearance: no apparent distress Cardiovascular: normal rate, regular rhythm Respiratory/Chest: lungs clear Abdomen: non tender, soft Extremities: non-pitting Neurologic: alert, oriented x 3 JO-ANN GONZALEZ Sep 10, 2017 08:55
[2017-09-10] MEDS ORDERED: Losartan 25mg tab ORAL SCH (09:00)
[2017-09-10] MEDS: Losartan 25mg tab ORAL SCH (09:00)
[2017-09-10] MEDS ORDERED: Metoprolol Succinate XL 50mg tab ORAL SCH ×2 (09:00)
--- NOTE | 2017-09-10 09:27 | Urology Progress Note ---
Assessment/Plan Assessment/Plan 1. Gross hematuria. 2. Bladder mass, rule out bladder carcinoma. 3. Pyuria. 4. Proteinuria. 5. Urinary retention. persistent bleeding will need urgent cysto with TURBT and fulguration has been off eliquis for three days by this morning cleared for surgery by cards will proceed transfusion of PRBC if necessary d/w pt fully Subjective Allergies: Coded Allergies: No Known Allergies (Unverified , 09/08/17) Subjective all noted, feels fair, CBI Objective Last 24 Hour Vital Signs Date Time Temp Pulse Resp B/P (MAP) Pulse Ox O2 Delivery O2 Flow Rate FiO2 09/10/17 08:00 97.5 56 20 152/71 95 Room Air 09/10/17 04:00 69 09/10/17 04:00 97.7 58 20 131/64 100 Room Air 09/10/17 00:00 97.5 100 20 134/57 Room Air 09/10/17 00:00 57 09/09/17 20:00 98.1 52 20 145/69 100 Room Air 09/09/17 20:00 61 09/09/17 17:00 73 09/09/17 12:29 97.2 68 20 148/73 100 Room Air Intake and Output 09/09/17 09/10/17 19:00 07:00 Intake Total 390 ml Output Total 250 ml Balance 140 ml Intake Oral 240 ml IV Total 150 ml Output Urine Total 250 ml Current Medications Medications (Trade) Dose Ordered Sig/Josselin Route PRN Reason Start Time Stop Time Status Last Admin Dose Admin Acetaminophen (Tylenol) 650 mg Q4H PRN ORAL Mild Pain/Temp > 100.5 09/09/17 21:00 10/09/17 00:59 Atorvastatin Calcium (Lipitor) 10 mg BEDTIME ORAL 09/09/17 21:00 10/09/17 20:59 09/09/17 20:20 Ceftriaxone Sodium 1 gm/ Dextrose 55 ml @ 110 mls/hr Q24H IVPB 09/09/17 21:00 09/16/17 20:59 09/09/17 20:21 Dextrose (Dextrose 50%) STAT PRN IV Hypoglycemia 09/10/17 01:00 10/09/17 00:59 Losartan Potassium (Cozaar) 25 mg DAILY ORAL 09/10/17 09:00 10/10/17 08:59 Metoprolol Succinate (Toprol XL) 50 mg DAILY ORAL 09/10/17 09:00 10/10/17 08:59 Morphine Sulfate (Morphine Sulfate) 2 mg Q4H PRN IVP MOD-SEVERE PAIN 4-10 09/09/17 21:00 09/16/17 00:59 Ondansetron HCl (Zofran) 4 mg Q6H PRN IVP Nausea & Vomiting 09/09/17 19:00 10/09/17 00:59 Potassium Chloride 10 meq/ Dextrose/Sodium Chloride 1,005 ml @ 75 mls/hr [id number] IV 09/09/17 19:00 10/09/17 12:59 Laboratory Tests 09/09/17 11:45: Prothrombin Time 11.1, Prothromb Time International Ratio 1.1, Activated Partial Thromboplast Time 28 09/09/17 18:48: White Blood Count 5.9, Red Blood Count 3.37L, Hemoglobin 10.1L, Hematocrit 33.0L , Mean Corpuscular Volume 98, Mean Corpuscular Hemoglobin 30.1, Mean Corpuscular Hemoglobin Concent 30.7L, Red Cell Distribution Width 11.7, Platelet Count 112L, Mean Platelet Volume 7.0, Neutrophils (%) (Auto) 71.9, Lymphocytes (%) (Auto) 15.7L, Monocytes (%) (Auto) 10.4H, Eosinophils (%) (Auto ) 1.0, Basophils (%) (Auto) 1.0 09/10/17 08:24: White Blood Count 6.1, Red Blood Count 3.34L, Hemoglobin 10.7L, Hematocrit 32.4L , Mean Corpuscular Volume 97, Mean Corpuscular Hemoglobin 32.1H, Mean Corpuscular Hemoglobin Concent 33.1, Red Cell Distribution Width 12.0, Platelet Count 116L, Mean Platelet Volume 7.1, Neutrophils (%) (Auto) 71.5, Lymphocytes ( %) (Auto) 17.0L, Monocytes (%) (Auto) 9.2, Eosinophils (%) (Auto) 1.2, Basophils (%) (Auto) 1.0 Height (Feet): 5 Height (Inches): 6.00 Weight (Pounds): 160 Objective urine is grossly blood-tinged with fast CBI NICHELLE AGUIRRE Sep 10, 2017 09:27
--- NOTE | 2017-09-10 10:03 | Anethesia Preoperative Eval ---
Anesthesia Pre-op PMH/ROS General Date of Evaluation: Sep 10, 2017 Time of Evaluation: 09:10 Anesthesiologist: Latha ASA Score: ASA 3 Mallampati Score Class I : Soft palate, uvula, fauces, pillars visible Class II: Soft palate, uvula, fauces visible Class III: Soft palate, base of uvula visible Class IV: Only hard plate visible Mallampati Classification: Class II Surgeon: Ascencion Diagnosis: Hematuria Surgical Procedure: Cysto TURBT Anesthesia History: none Family History: no anesthesia problems Allergies: Coded Allergies: No Known Allergies (Unverified , 09/08/17) Medications: see eMAR Past Medical History Cardiovascular: Reports: HTN, arrhythmia - A fib, Denies: CAD, VT, valve dz, other Pulmonary: Denies: asthma, COPD, LOLIS, other Gastrointestinal/Genitourinary: Reports: GERD, Denies: CRI, ESRD, other Neurologic/Psychiatric: Denies: dementia, CVA, depression/anxiety, TIA, other Endocrine: Denies: DM, hypothyroidism, steroids, other HEENT: Denies: cataract (L), cataract (R), glaucoma, [place] (L), [place] (R), other Hematology/Immune: Reports: anemia - mild, Denies: DVT, bleeding disorder, other Musculoskeletal/Integumentary: Denies: OA, RA, DJD, DDD, edema, other PMH Narrative: as above admitted with hematuria abdominal pain PSxH Narrative: See H&P Anesthesia Pre-op Phys. Exam Physician Exam Last Vital Signs Date Time Temp Pulse Resp B/P (MAP) Pulse Ox O2 Delivery O2 Flow Rate FiO2 09/10/17 08:00 97.5 56 20 152/71 95 Room Air Constitutional: NAD Neurologic: CN 2-12 intact Cardiovascular: RRR, no M/R/G Respiratory: CTA Gastrointestinal: S/NT/ND Airway Exam Mallampati Score: Class II MO: limited Neck: stiff ROM: limited Teeth: missing Dentures: upper, lower Anesthesia Pre-op A/P Labs Hematology Test 09/09/17 18:48 09/10/17 08:24 White Blood Count 5.9 K/UL (4.8-10.8) 6.1 K/UL (4.8-10.8) Red Blood Count 3.37 M/UL (4.70-6.10) L 3.34 M/UL (4.70-6.10) L Hemoglobin 10.1 G/DL (14.2-18.0) L 10.7 G/DL (14.2-18.0) L Hematocrit 33.0 % (42.0-52.0) L 32.4 % (42.0-52.0) L Mean Corpuscular Volume 98 FL (80-99) 97 FL (80-99) Mean Corpuscular Hemoglobin 30.1 PG (27.0-31.0) 32.1 PG (27.0-31.0) H Mean Corpuscular Hemoglobin Concent 30.7 G/DL (32.0-36.0) L 33.1 G/DL (32.0-36.0) Red Cell Distribution Width 11.7 % (11.6-14.8) 12.0 % (11.6-14.8) Platelet Count 112 K/UL (150-450) L 116 K/UL (150-450) L Mean Platelet Volume 7.0 FL (6.5-10.1) 7.1 FL (6.5-10.1) Neutrophils (%) (Auto) 71.9 % (45.0-75.0) 71.5 % (45.0-75.0) Lymphocytes (%) (Auto) 15.7 % (20.0-45.0) L 17.0 % (20.0-45.0) L Monocytes (%) (Auto) 10.4 % (1.0-10.0) H 9.2 % (1.0-10.0) Eosinophils (%) (Auto) 1.0 % (0.0-3.0) 1.2 % (0.0-3.0) Basophils (%) (Auto) 1.0 % (0.0-2.0) 1.0 % (0.0-2.0) Coagulation Test 09/09/17 11:45 Prothrombin Time 11.1 SEC (9.30-11.50) Prothromb Time International Ratio 1.1 (0.9-1.1) Activated Partial Thromboplast Time 28 SEC (23-33) Risk Assessment & Plan Assessment: ASA 3 Plan: GA with LMA Status Change Before Surgery: No Pre-Antibiotics Drug: Cefoxitin 1gr. Given Within 1 Hr of Incision: Yes Time Given: 09:22 RIGOBERTO ELLIOTT M.D. Sep 10, 2017 10:03
[2017-09-10] MEDS ORDERED: LR 1000ml 1,000 ML IVLG SCH (10:04)
[2017-09-10] MEDS ORDERED: Hydromorphone 0.5mg/0.5ml inj IVP PRN (10:15)
[2017-09-10] MEDS ORDERED: DiphenhydrAMINE 50mg/ml Inj IVP PRN (10:15)
--- NOTE | 2017-09-10 10:52 | Brief Operative Note ---
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
--- NOTE | 2017-09-10 11:44 | Cardiac Electrophysiology PN ---
Assessment/Plan Assessment/Plan 1. Hypertension. Increase Toprol to 50 bid. On Cozaar 25 mg daily. 2. Atrial fibrillation. The patient is obviously off anticoagulation in view of active hematuria. Increase Toprol-XL to 50 mg bid for tachycardia. 3. Active hematuria. S/P TURBT and TURP today by Dr Vegas. Also on antibiotic per Dr. Villarreal for pyelonephritis. DW anesthesiologist Subjective Subjective Just underwent Cystoscopy and bladder tumor resection. In Recovery but with atrial fib with RVR up to 160s Objective Last 24 Hour Vital Signs Date Time Temp Pulse Resp B/P (MAP) Pulse Ox O2 Delivery O2 Flow Rate FiO2 09/10/17 11:23 136 18 133/92 100 Simple Mask 10.0 09/10/17 11:18 135 18 131/105 100 Simple Mask 10.0 09/10/17 11:13 98.6 152 18 131/105 100 Simple Mask 10.0 09/10/17 08:00 97.5 56 20 152/71 95 Room Air 09/10/17 04:00 69 09/10/17 04:00 97.7 58 20 131/64 100 Room Air 09/10/17 00:00 97.5 100 20 134/57 Room Air 09/10/17 00:00 57 09/09/17 20:00 98.1 52 20 145/69 100 Room Air 09/09/17 20:00 61 09/09/17 17:00 73 09/09/17 12:29 97.2 68 20 148/73 100 Room Air Intake and Output 09/09/17 09/10/17 19:00 07:00 Intake Total 390 ml Output Total 250 ml Balance 140 ml Intake Oral 240 ml IV Total 150 ml Output Urine Total 250 ml Laboratory Tests Test 09/09/17 11:45 09/09/17 18:48 09/10/17 08:24 Prothrombin Time 11.1 SEC (9.30-11.50) Prothromb Time International Ratio 1.1 (0.9-1.1) Activated Partial Thromboplast Time 28 SEC (23-33) White Blood Count 5.9 K/UL (4.8-10.8) 6.1 K/UL (4.8-10.8) Red Blood Count 3.37 M/UL (4.70-6.10) L 3.34 M/UL (4.70-6.10) L Hemoglobin 10.1 G/DL (14.2-18.0) L 10.7 G/DL (14.2-18.0) L Hematocrit 33.0 % (42.0-52.0) L 32.4 % (42.0-52.0) L Mean Corpuscular Volume 98 FL (80-99) 97 FL (80-99) Mean Corpuscular Hemoglobin 30.1 PG (27.0-31.0) 32.1 PG (27.0-31.0) H Mean Corpuscular Hemoglobin Concent 30.7 G/DL (32.0-36.0) L 33.1 G/DL (32.0-36.0) Red Cell Distribution Width 11.7 % (11.6-14.8) 12.0 % (11.6-14.8) Platelet Count 112 K/UL (150-450) L 116 K/UL (150-450) L Mean Platelet Volume 7.0 FL (6.5-10.1) 7.1 FL (6.5-10.1) Neutrophils (%) (Auto) 71.9 % (45.0-75.0) 71.5 % (45.0-75.0) Lymphocytes (%) (Auto) 15.7 % (20.0-45.0) L 17.0 % (20.0-45.0) L Monocytes (%) (Auto) 10.4 % (1.0-10.0) H 9.2 % (1.0-10.0) Eosinophils (%) (Auto) 1.0 % (0.0-3.0) 1.2 % (0.0-3.0) Basophils (%) (Auto) 1.0 % (0.0-2.0) 1.0 % (0.0-2.0) Microbiology Date/Time Source Procedure Growth Status 09/09/17 17:10 Straight Cath Urine Culture - Preliminary NO GROWTH Resulted Objective HEAD AND NECK: No JVD. LUNGS: Clear. CARDIOVASCULAR: Irregular S1 and S2 with no gallop or murmur. ABDOMEN: Soft and nontender. EXTREMITIES: No pitting edema. GENITOURINARY: He has a Boston catheter . ANIYAH LANGLEY Sep 10, 2017 11:44
--- NOTE | 2017-09-10 12:05 | Immediate Post-Op Evaluation ---
Immediate Post-Op Evalulation Immediate Post-Op Evalulation Procedure: Cysto retrograde pyelogram TURBT Date of Evaluation: Sep 10, 2017 Time of Evaluation: 11:22 IV Fluids: 400 Blood Products: none Estimated Blood Loss: n/a Urinary Output: n/a Blood Pressure Systolic: 88 Blood Pressure Diastolic: 109 Pulse Rate: 47 Respiratory Rate: 22 O2 Sat by Pulse Oximetry: 98 Temperature (Fahrenheit): 98.1 Pain Score (1-10): 2 Nausea: No Vomiting: No Complications none Patient Status: reacts, patent, none Hydration Status: adequate RIGOBERTO ELLIOTT M.D. Sep 10, 2017 12:05
[2017-09-10] MEDS ORDERED: Propofol 200mg/20ml IV ONE (13:00)
[2017-09-10] MEDS ORDERED: Zemuron 50mg/5ml Inj IV ONE (13:00)
[2017-09-10] MEDS ORDERED: Midazolam 2mg/2ml Inj ONE (13:00)
[2017-09-10] MEDS ORDERED: fentaNYL 100 mcg/2 mL IV ONE (13:00)
[2017-09-10] MEDS ORDERED: LR 1000ml ONE (13:00)
--- NOTE | 2017-09-10 13:23 | Infectious Diseases Prog Note ---
Assessment/Plan Problems: (1) Pyelonephritis Assessment & Plan: await urine culture and continue ceftriaxon empiric coverage, CT abdomen ruled out abscess and stone, but showed bladder mass, S/ P cystoscopy and biopsy (2) Hematuria Assessment & Plan: rule out malignancy VS stone , had cystoscopy by urologist for further evaluation (3) Urinary retention Assessment & Plan: Rule out obstruction , BPH VS stone. will order renal US , recommend urology consult Subjective Constitutional: Reports: no symptoms HEENT: Reports: no symptoms Respiratory: Reports: no symptoms Breasts: Reports: no symptoms Cardiovascular: Reports: no symptoms Gastrointestinal/Abdominal: Reports: other - suprapubic pain Genitourinary: Reports: hematuria Neurologic: Reports: no symptoms Psychiatric: Reports: no symptoms Skin: Reports: no symptoms Endocrine: Reports: no symptoms Hematologic: Reports: no symptoms Musculoskeletal: Reports: no symptoms Allergies: Coded Allergies: No Known Allergies (Unverified , 09/08/17) Objective Vital Signs Last 24 Hour Vital Signs Date Time Temp Pulse Resp B/P (MAP) Pulse Ox O2 Delivery O2 Flow Rate FiO2 09/10/17 12:05 47 22 98 09/10/17 12:03 92 18 102/54 97 Nasal Cannula 3.0 09/10/17 11:53 101 18 148/62 100 Nasal Cannula 3.0 09/10/17 11:40 136 18 141/67 100 Simple Mask 10.0 09/10/17 11:23 136 18 133/92 100 Simple Mask 10.0 09/10/17 11:18 135 18 131/105 100 Simple Mask 10.0 09/10/17 11:13 98.6 152 18 131/105 100 Simple Mask 10.0 09/10/17 08:03 84 09/10/17 08:00 97.5 56 20 152/71 95 Room Air 09/10/17 04:00 69 09/10/17 04:00 97.7 58 20 131/64 100 Room Air 09/10/17 00:00 97.5 100 20 134/57 Room Air 09/10/17 00:00 57 09/09/17 20:00 98.1 52 20 145/69 100 Room Air 09/09/17 20:00 61 09/09/17 17:00 73 Height (Feet): 5 Height (Inches): 6.00 Weight (Pounds): 160 General Appearance: WD/WN, no acute distress HEENT: normocephalic, atraumatic, anicteric, mucous membranes moist, PERRL Respiratory/Chest: chest wall non-tender, lungs clear, normal breath sounds, no respiratory distress, no accessory muscle use Cardiovascular: normal peripheral pulses, normal rate, regular rhythm, no gallop/murmur, no JVD Abdomen: normal bowel sounds, soft, non tender, no organomegaly, non distended , no mass, no scars Extremities: no cyanosis, no clubbing Skin: no rash, no lesions, no ulcers Neurologic/Psychiatric: alert, responsive Lymphatic: no neck adenopathy, no groin adenopathy Microbiology Date/Time Source Procedure Growth Status 09/09/17 17:10 Straight Cath Urine Culture - Preliminary NO GROWTH Resulted Laboratory Tests Test 09/09/17 18:48 09/10/17 08:24 White Blood Count 5.9 K/UL (4.8-10.8) 6.1 K/UL (4.8-10.8) Red Blood Count 3.37 M/UL (4.70-6.10) L 3.34 M/UL (4.70-6.10) L Hemoglobin 10.1 G/DL (14.2-18.0) L 10.7 G/DL (14.2-18.0) L Hematocrit 33.0 % (42.0-52.0) L 32.4 % (42.0-52.0) L Mean Corpuscular Volume 98 FL (80-99) 97 FL (80-99) Mean Corpuscular Hemoglobin 30.1 PG (27.0-31.0) 32.1 PG (27.0-31.0) H Mean Corpuscular Hemoglobin Concent 30.7 G/DL (32.0-36.0) L 33.1 G/DL (32.0-36.0) Red Cell Distribution Width 11.7 % (11.6-14.8) 12.0 % (11.6-14.8) Platelet Count 112 K/UL (150-450) L 116 K/UL (150-450) L Mean Platelet Volume 7.0 FL (6.5-10.1) 7.1 FL (6.5-10.1) Neutrophils (%) (Auto) 71.9 % (45.0-75.0) 71.5 % (45.0-75.0) Lymphocytes (%) (Auto) 15.7 % (20.0-45.0) L 17.0 % (20.0-45.0) L Monocytes (%) (Auto) 10.4 % (1.0-10.0) H 9.2 % (1.0-10.0) Eosinophils (%) (Auto) 1.0 % (0.0-3.0) 1.2 % (0.0-3.0) Basophils (%) (Auto) 1.0 % (0.0-2.0) 1.0 % (0.0-2.0) Current Medications Medications (Trade) Dose Ordered Sig/Josselin Route PRN Reason Start Time Stop Time Status Last Admin Dose Admin Acetaminophen (Tylenol) 650 mg Q4H PRN ORAL Mild Pain/Temp > 100.5 09/09/17 21:00 10/09/17 00:59 Atorvastatin Calcium (Lipitor) 10 mg BEDTIME ORAL 09/09/17 21:00 10/09/17 20:59 09/09/17 20:20 Ceftriaxone Sodium 1 gm/ Dextrose 55 ml @ 110 mls/hr Q24H IVPB 09/09/17 21:00 09/16/17 20:59 09/09/17 20:21 Dextrose (Dextrose 50%) STAT PRN IV Hypoglycemia 09/10/17 01:00 10/09/17 00:59 Diphenhydramine HCl (Benadryl) 25 mg Q15M PRN IVP Itching 09/10/17 10:15 09/10/17 17:00 Hydromorphone HCl (Dilaudid) 0.5 mg Q15M PRN IVP Severe Pain (Pain Scale 7-10) 09/10/17 10:15 09/10/17 17:00 09/10/17 11:53 Losartan Potassium (Cozaar) 25 mg DAILY ORAL 09/10/17 09:00 10/10/17 08:59 Metoprolol Succinate (Toprol XL) 50 mg Q12HR ORAL 09/10/17 21:00 10/10/17 20:59 Morphine Sulfate (Morphine Sulfate) 2 mg Q4H PRN IVP MOD-SEVERE PAIN 4-10 09/09/17 21:00 09/16/17 00:59 Ondansetron HCl (Zofran) 4 mg Q1H PRN IVP Nausea & Vomiting 09/10/17 10:15 09/10/17 17:00 Ondansetron HCl (Zofran) 4 mg Q6H PRN IVP Nausea & Vomiting 09/09/17 19:00 10/09/17 00:59 Potassium Chloride 10 meq/ Dextrose/Sodium Chloride 1,005 ml @ 75 mls/hr [id number] IV 09/09/17 19:00 10/09/17 12:59 Michelle Villarreal M.D. Sep 10, 2017 13:23
[2017-09-10] MEDS: cefTRIAXone 1 GM in D5W 55 ML IVPB SCH (21:49)
[2017-09-10] MEDS: Metoprolol Succinate XL 50mg tab ORAL SCH (21:49)
[2017-09-11] VITALS: BP 124/70
[2017-09-11] MEDS: Morphine Sulfate 2mg/ml Inj IVP PRN ×2 (00:14→21:19)
[2017-09-11 04:00] VITALS: BP 120/60
[2017-09-11 07:38] LABS: ANION GAP 9 mmol/L (5-15); BLOOD UREA NITROGEN 23 mg/dL (7-18); CALCIUM 7.6 MG/DL (8.5-10.1); CARBON DIOXIDE 23 MMOL/L (21-32); CHLORIDE 107 MMOL/L (98-107); POTASSIUM 4.6 MMOL/L (3.5-5.1); SODIUM 139 MMOL/L (136-145)
[2017-09-11 07:46] LABS: BASOPHILS % (AUTO) 0.9 % (0.0-2.0); EOSINOPHILS % (AUTO) 1.7 % (0.0-3.0); HEMOGLOBIN 9.8 G/DL (14.2-18.0); LYMPHOCYTES % (AUTO) 13.3 % (20.0-45.0); MEAN CORPUSCULAR VOLUME 98 FL (80-99); MONOCYTES % (AUTO) 12.9 % (1.0-10.0); NEUTROPHILS % (AUTO) 71.2 % (45.0-75.0); PLATELET COUNT 113 K/UL (150-450); RED BLOOD COUNT 2.94 M/UL (4.70-6.10); RED CELL DISTRIBUTION WIDTH 11.9 % (11.6-14.8)
[2017-09-11 08:00] VITALS: BP 114/51
--- NOTE | 2017-09-11 08:28 | Urology Progress Note ---
Assessment/Plan Assessment/Plan 1. Gross hematuria. 2. Bladder mass, rule out bladder carcinoma. 3. Pyuria. 4. Proteinuria. 5. Urinary retention. 6. POD # 1, cysto/TURBT doing better I personally hand irrigated souza minimal clots no active bleeding now keep souza for now abx f/u on path d/w pt fully Subjective Allergies: Coded Allergies: No Known Allergies (Unverified , 09/08/17) Subjective all noted, feels fair Objective Last 24 Hour Vital Signs Date Time Temp Pulse Resp B/P (MAP) Pulse Ox O2 Delivery O2 Flow Rate FiO2 09/11/17 08:00 98.2 66 20 114/51 98 Nasal Cannula 2.0 09/11/17 04:00 97.4 71 20 120/60 100 Nasal Cannula 2.0 09/11/17 04:00 80 09/11/17 00:00 98.0 61 18 124/70 100 Nasal Cannula 3.0 09/11/17 00:00 83 09/10/17 21:49 69 127/61 09/10/17 20:00 90 09/10/17 20:00 97.2 69 20 127/61 100 Nasal Cannula 3.0 09/10/17 17:05 71 09/10/17 16:00 97.6 67 19 137/57 99 Nasal Cannula 3.0 09/10/17 12:09 90 09/10/17 12:05 47 22 98 09/10/17 12:03 92 18 102/54 97 Nasal Cannula 3.0 09/10/17 11:53 101 18 148/62 100 Nasal Cannula 3.0 09/10/17 11:40 136 18 141/67 100 Simple Mask 10.0 09/10/17 11:23 136 18 133/92 100 Simple Mask 10.0 09/10/17 11:18 135 18 131/105 100 Simple Mask 10.0 09/10/17 11:13 98.6 152 18 131/105 100 Simple Mask 10.0 Intake and Output 09/10/17 09/11/17 19:00 07:00 Intake Total 575 ml 1505 ml Output Total 400 ml 1180 ml Balance 175 ml 325 ml Intake Oral 480 ml IV Total 575 ml 1025 ml Output Urine Total 400 ml 1180 ml # Voids 1 Microbiology Date/Time Source Procedure Growth Status 09/09/17 17:10 Straight Cath Urine Culture - Preliminary NO GROWTH AFTER 24 HOURS Resulted Current Medications Medications (Trade) Dose Ordered Sig/Josselin Route PRN Reason Start Time Stop Time Status Last Admin Dose Admin Acetaminophen (Tylenol) 650 mg Q4H PRN ORAL Mild Pain/Temp > 100.5 09/09/17 21:00 10/09/17 00:59 Atorvastatin Calcium (Lipitor) 10 mg BEDTIME ORAL 09/09/17 21:00 10/09/17 20:59 09/10/17 21:48 Ceftriaxone Sodium 1 gm/ Dextrose 55 ml @ 110 mls/hr Q24H IVPB 09/09/17 21:00 09/16/17 20:59 09/10/17 21:49 Dextrose (Dextrose 50%) STAT PRN IV Hypoglycemia 09/10/17 01:00 10/09/17 00:59 Losartan Potassium (Cozaar) 25 mg DAILY ORAL 09/10/17 09:00 10/10/17 08:59 Metoprolol Succinate (Toprol XL) 50 mg Q12HR ORAL 09/10/17 21:00 10/10/17 20:59 09/10/17 21:49 Morphine Sulfate (Morphine Sulfate) 2 mg Q4H PRN IVP MOD-SEVERE PAIN 4-10 09/09/17 21:00 09/16/17 00:59 09/11/17 00:14 Ondansetron HCl (Zofran) 4 mg Q6H PRN IVP Nausea & Vomiting 09/09/17 19:00 10/09/17 00:59 Potassium Chloride 10 meq/ Dextrose/Sodium Chloride 1,005 ml @ 75 mls/hr [id number] IV 09/09/17 19:00 10/09/17 12:59 09/10/17 21:52 Laboratory Tests 09/11/17 05:50: White Blood Count 7.0, Red Blood Count 2.94L, Hemoglobin 9.8L, Hematocrit 29.0L , Mean Corpuscular Volume 98, Mean Corpuscular Hemoglobin 33.2H, Mean Corpuscular Hemoglobin Concent 33.7, Red Cell Distribution Width 11.9, Platelet Count 113L, Mean Platelet Volume 8.1, Neutrophils (%) (Auto) 71.2, Lymphocytes ( %) (Auto) 13.3L, Monocytes (%) (Auto) 12.9H, Eosinophils (%) (Auto) 1.7, Basophils (%) (Auto) 0.9, Sodium Level 139, Potassium Level 4.6, Chloride Level 107, Carbon Dioxide Level 23, Anion Gap 9, Blood Urea Nitrogen 23H, Creatinine 1.0, Estimat Glomerular Filtration Rate , Glucose Level 116H, Calcium Level 7.6L Height (Feet): 5 Height (Inches): 6.00 Weight (Pounds): 160 Objective urine is clearing off NAPOLEONI NICHELLE AGUIRRE Sep 11, 2017 08:28
[2017-09-11] MEDS: Losartan 25mg tab ORAL SCH (08:38)
[2017-09-11] MEDS: Metoprolol Succinate XL 50mg tab ORAL SCH ×2 (08:39→21:15)
--- NOTE | 2017-09-11 09:15 | Operative Note - Dictated ---
DATE OF OPERATION: 09/10/2017 NOTE: POOR AUDIO QUALITY PREOPERATIVE DIAGNOSIS: Gross hematuria with clot retention, urinary retention, and bladder tumor. POSTOPERATIVE DIAGNOSES: Gross hematuria with clot retention, urinary retention, and bladder tumor. PROCEDURE PERFORMED: Cystoscopy urethral calibration, clot evacuation, transurethral resection of bladder tumor and prostate, and bilateral retrograde pyelogram. OPERATING SURGEON: Jesse Vegas M.D. ANESTHESIOLOGIST: Navi Azul M.D. ANESTHESIA: General. INDICATION FOR PROCEDURE: This is an 87-year-old male, who came to the emergency room because of inability to void and gross hematuria. He had a Boston catheter placed, however, the nursing staff were not able to irrigate it. I did evaluate him yesterday where he had organized thick clots in the bladder. I was not able to get catheter was placed. I was able to get some of the clots out, however, I was not able to evacuate all the clots and he did have some bleeding. He was started on bladder irrigation. He did have the drop in his H and H. The patient did have a CT scan, which showed a 5 cm bladder mass. Apparently, he had been on Eliquis at home, however, he states that he had been off for at least two days prior to coming to the hospital. Because of the clots in the bladder and the persistent bleeding, a decision was made to bring the patient to the operating room on an urgent basis to clear the clots and control the bleeding. The nature of the procedure was discussed with the patient in extensive detail through the [employer] senior medical director. Possible risks and complications including damage to the urethra, bladder, perforation etc., were discussed. No guarantees were given or implied. FINDINGS: The patient had thick organized clots in the bladder. 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 There was a second tumor just behind the right ureteral orifice. These were all resected and the base was cauterized. He had thick organized clots in the bladder, which were evacuated. He had some oozing from the prostate, which was also dissected and then cauterized. Bilateral retrograde pyelograms were normal. PROCEDURE IN DETAIL: Informed consent was obtained from the patient. The patient was brought to the operating room and placed in the supine position. After successful general anesthesia was induced, the patient was placed in the modified dorsal lithotomy position and genitalia was then prepped and draped in the usual sterile fashion. Preoperative IV antibiotics have been administered. Time-out was performed. At this time, the urethral meatus was calibrated. Cystoscopy was then performed. The urethra was slightly narrow. Prostate was minimally obstructive. There was some oozing from the the prostate. The bladder was then inspected. He had copious large thick organized clots in the bladder, which obscured the tumor. It took me about half an hour just to clear the clots out. It was so large and so thick, I was not able to irrigate out through the existing cysto sheath and I had to resect the clots into small pieces to be able to irrigate them out. 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 It was oozing. There was a second tumor just behind the right ureteral orifice. I was able to identify both orifices. At this time, the left ureteral orifice was opened with an open-ended catheter. Retrograde pyelogram was done, which showed normal upper tracts. This was repeated on the right side with normal upper tracts. No filling defects or hydronephrosis. At this time, once again, all the clots were evacuated. I then introduced the resectoscope, the sheath the bipolar system and I resected all the visible tumor which was mostly on the right lateral side down to the base. The base was extensively fulgurated to get hemostasis. Tumor behind the right ureteral orifice was also detected and the base was fulgurated. Care was taken not to injure the ureteral orifices and these were both intact at the end of the procedure. I inspected the rest of the bladder. I did not see any obvious tumors. He did have some oozing from the of the prostate in the medial lobe area and because of the extensive tumor that remained, . The prostate was fulgurated and the biopsy was taken by transurethral resection for sampling. At the end of the procedure, again all clots were evacuated. Excellent hemostasis was obtained. I then removed the cystoscope sheath and the 22-Maltese Boston catheter was then placed. The bladder was in good position and irrigated well. The patient was awakened and taken to the recovery room in stable condition. Blood loss was . No complications. Jesse Vegas M.D. DR: RADHA JOB#: [id number] CC: Cruz Lorenz M.D.; Fax#: [phone] ANIYAH LANGLEY M.D. ; FAX#: [phone]
--- NOTE | 2017-09-11 09:15 | Consultation ---
DATE OF CONSULTATION: 09/10/2017 NOTE: POOR AUDIO HEMATOLOGY/ONCOLOGY CONSULTATION CONSULTING PHYSICIAN: Jose Sam M.D. REQUESTING PHYSICIAN: Cruz Lorenz M.D. REASON FOR CONSULTATION: Evaluation of bladder resection of mass bleeding. IDENTIFYING DATA: Dear Dr. Lorenz, The patient is a pleasant 87-year-old male with past medical history significant for coronary artery disease, presented at this time with hypertension, hematuria, and blood clots. CT scan showed a bladder mass. Urology service evaluation was made. the patient at this time, and the patient's urgent cystoscopy with TURP and fulguration past three days. Cleared for surgery by Cardiology. The patient bleeding, had operation performed today, tolerated the procedure well, large bladder mass as well as bleeding was noted. TURP, bilateral retrograms . Pathology report at this time is pending. The patient's hemoglobin has been relatively stable. INR is 1.1 as of yesterday. PAST MEDICAL HISTORY: Kidney stones . PAST SURGICAL HISTORY: None noted. ALLERGIES: No known drug allergies. MEDICATIONS: Reviewed. FAMILY HISTORY: Noncontributory. SOCIAL HISTORY: Lives at home with family. No alcohol, tobacco, or illicit drug use. REVIEW OF SYSTEMS: Difficult to obtain. The patient is a poor historian. . PHYSICAL EXAMINATION: GENERAL: No acute distress. VITAL SIGNS: Reviewed. PULMONARY: Decreased breath sounds. CARDIOVASCULAR: Regular rate. No S3 or S4. ABDOMEN: Soft, nontender, and nondistended. EXTREMITIES: A 1+ edema. LABORATORY DATA: WBC of 4.3, hemoglobin 10.7, hematocrit , and platelets 116,000. . ASSESSMENT AND RECOMMENDATIONS: 1. Bladder mass bleeding. The patient is status post TURP. At this time, recommended to obtain CT scan as well as follow up pathology report. CT scan has been ordered. 2. Anemia secondary to hematuria. Continue to closely monitor. Hemoglobin goal is above 7. 3. Urinary retention due to mass. 4. Proteinuria. 5. History of pyuria. Continue to monitor as well. 6. Pyelonephritis and urinary retention. Continue on antibiotics. I appreciate the consultation. Jose Sam M.D. DR: SHASHANK JOB#: [id number] CC:
[2017-09-11] MEDS: Potassium Chloride 10 MEQ in D5 1/2NS 1,000 ML IV SCH (11:39)
[2017-09-11 12:00] VITALS: BP 142/50
--- NOTE | 2017-09-11 13:15 | Cardiac Electrophysiology PN ---
Assessment/Plan Assessment/Plan 1. Hypertension. Toprol 50 bid. On Cozaar 25 mg daily. 2. Atrial fibrillation. The patient is obviously off anticoagulation in view of active hematuria. Toprol-XL 50 mg bid for tachycardia. 3. Active hematuria. S/P TURBT and today by Dr Vegas. Also on antibiotic per Dr. Villarreal for pyelonephritis. BOBBY RN Subjective Subjective HadcCystoscopy and bladder tumor resection. In atrial fib with controlled rate Objective Last 24 Hour Vital Signs Date Time Temp Pulse Resp B/P (MAP) Pulse Ox O2 Delivery O2 Flow Rate FiO2 09/11/17 12:00 98.1 77 20 142/50 96 Nasal Cannula 2.0 09/11/17 08:39 66 114/51 09/11/17 08:38 137/51 09/11/17 08:00 69 09/11/17 08:00 98.2 66 20 114/51 98 Nasal Cannula 2.0 09/11/17 04:00 97.4 71 20 120/60 100 Nasal Cannula 2.0 09/11/17 04:00 80 09/11/17 00:00 98.0 61 18 124/70 100 Nasal Cannula 3.0 09/11/17 00:00 83 09/10/17 21:49 69 127/61 09/10/17 20:00 90 09/10/17 20:00 97.2 69 20 127/61 100 Nasal Cannula 3.0 09/10/17 17:05 71 09/10/17 16:00 97.6 67 19 137/57 99 Nasal Cannula 3.0 Intake and Output 09/10/17 09/11/17 19:00 07:00 Intake Total 575 ml 1505 ml Output Total 400 ml 1180 ml Balance 175 ml 325 ml Intake Oral 480 ml IV Total 575 ml 1025 ml Output Urine Total 400 ml 1180 ml # Voids 1 Laboratory Tests Test 09/11/17 05:50 White Blood Count 7.0 K/UL (4.8-10.8) Red Blood Count 2.94 M/UL (4.70-6.10) L Hemoglobin 9.8 G/DL (14.2-18.0) L Hematocrit 29.0 % (42.0-52.0) L Mean Corpuscular Volume 98 FL (80-99) Mean Corpuscular Hemoglobin 33.2 PG (27.0-31.0) H Mean Corpuscular Hemoglobin Concent 33.7 G/DL (32.0-36.0) Red Cell Distribution Width 11.9 % (11.6-14.8) Platelet Count 113 K/UL (150-450) L Mean Platelet Volume 8.1 FL (6.5-10.1) Neutrophils (%) (Auto) 71.2 % (45.0-75.0) Lymphocytes (%) (Auto) 13.3 % (20.0-45.0) L Monocytes (%) (Auto) 12.9 % (1.0-10.0) H Eosinophils (%) (Auto) 1.7 % (0.0-3.0) Basophils (%) (Auto) 0.9 % (0.0-2.0) Sodium Level 139 MMOL/L (136-145) Potassium Level 4.6 MMOL/L (3.5-5.1) Chloride Level 107 MMOL/L (98-107) Carbon Dioxide Level 23 MMOL/L (21-32) Anion Gap 9 mmol/L (5-15) Blood Urea Nitrogen 23 mg/dL (7-18) H Creatinine 1.0 MG/DL (0.55-1.30) Estimat Glomerular Filtration Rate mL/min (>60) Glucose Level 116 MG/DL (74-106) H Calcium Level 7.6 MG/DL (8.5-10.1) L Microbiology Date/Time Source Procedure Growth Status 09/09/17 17:10 Straight Cath Urine Culture - Preliminary NO GROWTH AFTER 24 HOURS Resulted Objective HEAD AND NECK: No JVD. LUNGS: Clear. CARDIOVASCULAR: Irregular S1 and S2 with no gallop or murmur. ABDOMEN: Soft and nontender. EXTREMITIES: No pitting edema. GENITOURINARY: He has a Boston catheter . ANIYAH LANGLEY Sep 11, 2017 13:15
--- NOTE | 2017-09-11 14:14 | Infectious Diseases Prog Note ---
Assessment/Plan Problems: (1) Pyelonephritis Assessment & Plan: await urine culture and continue ceftriaxon empiric coverage, CT abdomen ruled out abscess and stone, but showed bladder mass, S/ P cystoscopy/TURBT and biopsy (2) Hematuria Assessment & Plan: rule out malignancy , had cystoscopy by urologist for further evaluation, suspect malignant process (3) Urinary retention Assessment & Plan: due to bladder obstruction via mass , S/P cystoscopy and mass biopsy of the bladder Subjective Constitutional: Reports: no symptoms HEENT: Reports: no symptoms Respiratory: Reports: no symptoms Breasts: Reports: no symptoms Cardiovascular: Reports: no symptoms Gastrointestinal/Abdominal: Reports: no symptoms Genitourinary: Reports: dysuria Neurologic: Reports: no symptoms Psychiatric: Reports: no symptoms Skin: Reports: no symptoms Endocrine: Reports: no symptoms Hematologic: Reports: no symptoms Musculoskeletal: Reports: no symptoms Allergies: Coded Allergies: No Known Allergies (Unverified , 09/08/17) Subjective he had cystoscopy yesterday with bladder mass biopsy , urine looks clear now Objective Vital Signs Last 24 Hour Vital Signs Date Time Temp Pulse Resp B/P (MAP) Pulse Ox O2 Delivery O2 Flow Rate FiO2 09/11/17 12:00 88 09/11/17 12:00 98.1 77 20 142/50 96 Nasal Cannula 2.0 09/11/17 08:39 66 114/51 09/11/17 08:38 137/51 09/11/17 08:00 69 09/11/17 08:00 98.2 66 20 114/51 98 Nasal Cannula 2.0 09/11/17 04:00 97.4 71 20 120/60 100 Nasal Cannula 2.0 09/11/17 04:00 80 09/11/17 00:00 98.0 61 18 124/70 100 Nasal Cannula 3.0 09/11/17 00:00 83 09/10/17 21:49 69 127/61 09/10/17 20:00 90 09/10/17 20:00 97.2 69 20 127/61 100 Nasal Cannula 3.0 09/10/17 17:05 71 09/10/17 16:00 97.6 67 19 137/57 99 Nasal Cannula 3.0 Height (Feet): 5 Height (Inches): 6.00 Weight (Pounds): 160 General Appearance: WD/WN, no acute distress HEENT: normocephalic, atraumatic, anicteric, mucous membranes moist, PERRL, pharynx normal, supple, no JVD Respiratory/Chest: chest wall non-tender, lungs clear, normal breath sounds, no respiratory distress, no accessory muscle use Cardiovascular: normal peripheral pulses, normal rate, regular rhythm, no gallop/murmur, no JVD Abdomen: normal bowel sounds, soft, non tender, no organomegaly, non distended , no mass, no scars Extremities: no cyanosis, no clubbing Skin: no rash, no lesions, no ulcers Neurologic/Psychiatric: alert, oriented x 3, responsive Microbiology Date/Time Source Procedure Growth Status 09/09/17 17:10 Straight Cath Urine Culture - Preliminary NO GROWTH AFTER 24 HOURS Resulted Laboratory Tests Test 09/11/17 05:50 White Blood Count 7.0 K/UL (4.8-10.8) Red Blood Count 2.94 M/UL (4.70-6.10) L Hemoglobin 9.8 G/DL (14.2-18.0) L Hematocrit 29.0 % (42.0-52.0) L Mean Corpuscular Volume 98 FL (80-99) Mean Corpuscular Hemoglobin 33.2 PG (27.0-31.0) H Mean Corpuscular Hemoglobin Concent 33.7 G/DL (32.0-36.0) Red Cell Distribution Width 11.9 % (11.6-14.8) Platelet Count 113 K/UL (150-450) L Mean Platelet Volume 8.1 FL (6.5-10.1) Neutrophils (%) (Auto) 71.2 % (45.0-75.0) Lymphocytes (%) (Auto) 13.3 % (20.0-45.0) L Monocytes (%) (Auto) 12.9 % (1.0-10.0) H Eosinophils (%) (Auto) 1.7 % (0.0-3.0) Basophils (%) (Auto) 0.9 % (0.0-2.0) Sodium Level 139 MMOL/L (136-145) Potassium Level 4.6 MMOL/L (3.5-5.1) Chloride Level 107 MMOL/L (98-107) Carbon Dioxide Level 23 MMOL/L (21-32) Anion Gap 9 mmol/L (5-15) Blood Urea Nitrogen 23 mg/dL (7-18) H Creatinine 1.0 MG/DL (0.55-1.30) Estimat Glomerular Filtration Rate mL/min (>60) Glucose Level 116 MG/DL (74-106) H Calcium Level 7.6 MG/DL (8.5-10.1) L Current Medications Medications (Trade) Dose Ordered Sig/Josselin Route PRN Reason Start Time Stop Time Status Last Admin Dose Admin Acetaminophen (Tylenol) 650 mg Q4H PRN ORAL Mild Pain/Temp > 100.5 09/09/17 21:00 10/09/17 00:59 Atorvastatin Calcium (Lipitor) 10 mg BEDTIME ORAL 09/09/17 21:00 10/09/17 20:59 09/10/17 21:48 Ceftriaxone Sodium 1 gm/ Dextrose 55 ml @ 110 mls/hr Q24H IVPB 09/09/17 21:00 09/16/17 20:59 09/10/17 21:49 Dextrose (Dextrose 50%) STAT PRN IV Hypoglycemia 09/10/17 01:00 10/09/17 00:59 Losartan Potassium (Cozaar) 25 mg DAILY ORAL 09/10/17 09:00 10/10/17 08:59 09/11/17 08:38 Magnesium Hydroxide (Mom) 30 ml BIDPRN PRN ORAL Constipation 09/11/17 13:00 10/11/17 12:59 Metoprolol Succinate (Toprol XL) 50 mg Q12HR ORAL 09/10/17 21:00 10/10/17 20:59 09/11/17 08:39 Morphine Sulfate (Morphine Sulfate) 2 mg Q4H PRN IVP MOD-SEVERE PAIN 4-10 09/09/17 21:00 09/16/17 00:59 09/11/17 00:14 Ondansetron HCl (Zofran) 4 mg Q6H PRN IVP Nausea & Vomiting 09/09/17 19:00 10/09/17 00:59 Potassium Chloride 10 meq/ Dextrose/Sodium Chloride 1,005 ml @ 75 mls/hr [id number] IV 09/09/17 19:00 10/09/17 12:59 09/11/17 11:39 Michelle Villarreal M.D. Sep 11, 2017 14:14
[2017-09-11 16:00] VITALS: BP 135/66
[2017-09-11] MEDS: Milk of Magnesia 30ml Ud ORAL PRN (16:48)
--- NOTE | 2017-09-11 17:32 | Nephrology Progress Note ---
Assessment/Plan Problem List: (1) S/P TURP (2) Bladder mass (3) Hematuria (4) Pyelonephritis (5) Urinary retention (6) HTN (hypertension) (7) Arrhythmia Plan Monitor intake and output Monitor urine for bleeding monitor H&H, transfuse prn Continue Abx per ID Hematology following Will f/u with surgeons rec AM labs Subjective Constitutional: Denies: no symptoms, chills, diaphoresis, fever, malaise, weakness, other HEENT: Denies: no symptoms, eye pain, blurred vision, tearing, double vision, ear pain, ear discharge, nose pain, nose congestion, throat pain, throat swelling, mouth pain, mouth swelling, other Genitourinary: Denies: no symptoms, burning, discharge, frequency, flank pain, hematuria, incontinence, pain, urgency, other Neurologic/Psychiatric: Denies: no symptoms, anxiety, depressed, emotional problems, headache, numbness, paresthesia, pre-existing deficit, seizure, tingling, tremors, weakness, other Subjective In bed, in no distress, denies pain at this time, urinary catheter noted draining pink urine Objective Objective Last 24 Hour Vital Signs Date Time Temp Pulse Resp B/P (MAP) Pulse Ox O2 Delivery O2 Flow Rate FiO2 09/11/17 16:00 91 09/11/17 16:00 96.3 75 20 135/66 100 Nasal Cannula 2.0 09/11/17 12:00 88 09/11/17 12:00 98.1 77 20 142/50 96 Nasal Cannula 2.0 09/11/17 08:39 66 114/51 09/11/17 08:38 137/51 09/11/17 08:00 69 09/11/17 08:00 98.2 66 20 114/51 98 Nasal Cannula 2.0 09/11/17 04:00 97.4 71 20 120/60 100 Nasal Cannula 2.0 09/11/17 04:00 80 09/11/17 00:00 98.0 61 18 124/70 100 Nasal Cannula 3.0 09/11/17 00:00 83 09/10/17 21:49 69 127/61 09/10/17 20:00 90 09/10/17 20:00 97.2 69 20 127/61 100 Nasal Cannula 3.0 Intake and Output 09/10/17 09/11/17 19:00 07:00 Intake Total 575 ml 1505 ml Output Total 400 ml 1180 ml Balance 175 ml 325 ml Intake Oral 480 ml IV Total 575 ml 1025 ml Output Urine Total 400 ml 1180 ml # Voids 1 Laboratory Tests 09/11/17 05:50: White Blood Count 7.0, Red Blood Count 2.94L, Hemoglobin 9.8L, Hematocrit 29.0L , Mean Corpuscular Volume 98, Mean Corpuscular Hemoglobin 33.2H, Mean Corpuscular Hemoglobin Concent 33.7, Red Cell Distribution Width 11.9, Platelet Count 113L, Mean Platelet Volume 8.1, Neutrophils (%) (Auto) 71.2, Lymphocytes ( %) (Auto) 13.3L, Monocytes (%) (Auto) 12.9H, Eosinophils (%) (Auto) 1.7, Basophils (%) (Auto) 0.9, Sodium Level 139, Potassium Level 4.6, Chloride Level 107, Carbon Dioxide Level 23, Anion Gap 9, Blood Urea Nitrogen 23H, Creatinine 1.0, Estimat Glomerular Filtration Rate , Glucose Level 116H, Calcium Level 7.6L Height (Feet): 5 Height (Inches): 6.00 Weight (Pounds): 160 General Appearance: no apparent distress, alert EENT: normal ENT inspection Neck: normal alignment, supple Cardiovascular: normal rate, regular rhythm, no JVD Respiratory/Chest: normal breath sounds, no respiratory distress Abdomen: non tender, soft Extremities: non-tender, normal inspection, no calf tenderness Neurologic: alert, oriented x 3, responsive, normal mood/affect Julianna Gonzalez N.P. Sep 11, 2017 17:32
[2017-09-11 20:00] VITALS: BP 142/75
[2017-09-11] MEDS: cefTRIAXone 1 GM in D5W 55 ML IVPB SCH (21:17)
--- NOTE | 2017-09-11 21:48 | Diagnostic Imaging Report ---
Indication: Ureteroscopy. Abdominal pain Comparison: None Fluoroscopic obtained images during the procedure obtained Findings: Contrast injection into both the left and right collecting systems demonstrated total fluoroscopic time 36.4 seconds. IMPRESSION: Intraoperative imaging both ureters and calyces.
--- NOTE | 2017-09-11 22:54 | General Progress Note ---
Assessment/Plan Assessment/Plan 1. Bladder mass bleeding. The patient is status post TURP. At this time, recommended to obtain CT scan as well as follow up pathology report. CT scan has been ordered. 2. Anemia secondary to hematuria. Continue to closely monitor. Hemoglobin goal is above 7. 3. Urinary retention due to mass. 4. Proteinuria. 5. History of pyuria. Continue to monitor as well. 6. Pyelonephritis and urinary retention. Continue on antibiotics. Subjective Date patient seen: Sep 11, 2017 Constitutional: Denies: no symptoms, chills, diaphoresis, fever, malaise, weakness, other HEENT: Denies: no symptoms, eye pain, blurred vision, tearing, double vision, ear pain, ear discharge, nose pain, nose congestion, throat pain, throat swelling, mouth pain, mouth swelling, other Cardiovascular: Denies: no symptoms, chest pain, edema, irregular heart rate, lightheadedness, palpitations, syncope, other Respiratory: Denies: no symptoms, cough, orthopnea, shortness of breath, SOB with excertion, SOB at rest, sputum, stridor, wheezing, other Gastrointestinal/Abdominal: Denies: no symptoms, abdomen distended, abdominal pain, black stools, tarry stools, blood in stool, constipated, diarrhea, difficulty swallowing, nausea, poor appetite, poor fluid intake, rectal bleeding , vomiting, other Genitourinary: Denies: no symptoms, burning, discharge, frequency, flank pain, hematuria, incontinence, pain, urgency, other Allergies: Coded Allergies: No Known Allergies (Unverified , 09/08/17) Subjective S/P EGD. Afebrile. On pain control. Objective Last 24 Hour Vital Signs Date Time Temp Pulse Resp B/P (MAP) Pulse Ox O2 Delivery O2 Flow Rate FiO2 09/11/17 21:15 91 135/66 09/11/17 20:00 97.5 77 20 142/75 97 Room Air 09/11/17 16:00 91 09/11/17 16:00 96.3 75 20 135/66 100 Nasal Cannula 2.0 09/11/17 12:00 88 09/11/17 12:00 98.1 77 20 142/50 96 Nasal Cannula 2.0 09/11/17 08:39 66 114/51 09/11/17 08:38 137/51 09/11/17 08:00 69 09/11/17 08:00 98.2 66 20 114/51 98 Nasal Cannula 2.0 09/11/17 04:00 97.4 71 20 120/60 100 Nasal Cannula 2.0 09/11/17 04:00 80 09/11/17 00:00 98.0 61 18 124/70 100 Nasal Cannula 3.0 09/11/17 00:00 83 Intake and Output 09/10/17 09/11/17 19:00 07:00 Intake Total 575 ml 1505 ml Output Total 400 ml 1180 ml Balance 175 ml 325 ml Intake Oral 480 ml IV Total 575 ml 1025 ml Output Urine Total 400 ml 1180 ml # Voids 1 Laboratory Tests 09/11/17 05:50: White Blood Count 7.0, Red Blood Count 2.94L, Hemoglobin 9.8L, Hematocrit 29.0L , Mean Corpuscular Volume 98, Mean Corpuscular Hemoglobin 33.2H, Mean Corpuscular Hemoglobin Concent 33.7, Red Cell Distribution Width 11.9, Platelet Count 113L, Mean Platelet Volume 8.1, Neutrophils (%) (Auto) 71.2, Lymphocytes ( %) (Auto) 13.3L, Monocytes (%) (Auto) 12.9H, Eosinophils (%) (Auto) 1.7, Basophils (%) (Auto) 0.9, Sodium Level 139, Potassium Level 4.6, Chloride Level 107, Carbon Dioxide Level 23, Anion Gap 9, Blood Urea Nitrogen 23H, Creatinine 1.0, Estimat Glomerular Filtration Rate , Glucose Level 116H, Calcium Level 7.6L Height (Feet): 5 Height (Inches): 6.00 Weight (Pounds): 160 EENT: normal ENT inspection Neck: normal alignment, supple Respiratory/Chest: decreased breath sounds Abdomen: non tender, soft Jose Sam Sep 11, 2017 22:54
[2017-09-12] VITALS: BP 132/77
--- NOTE | 2017-09-12 00:01 | Cardiology Report ---
APPROVED REPORT EKG Measurement Heart [id number] Atrial fibrillation with slow ventricular response Right bundle branch block Abnormal ECG
[2017-09-12] MEDS: Potassium Chloride 10 MEQ in D5 1/2NS 1,000 ML IV SCH ×3 (00:49→21:50)
[2017-09-12 04:00] VITALS: BP 136/83
[2017-09-12] MEDS: Morphine Sulfate 2mg/ml Inj IVP PRN (05:22)
[2017-09-12 08:00] VITALS: BP 121/53
[2017-09-12 08:23] LABS: BASOPHILS % (AUTO) 1.2 % (0.0-2.0); EOSINOPHILS % (AUTO) 1.4 % (0.0-3.0); HEMATOCRIT 29.1 % (42.0-52.0); HEMOGLOBIN 9.7 G/DL (14.2-18.0); LYMPHOCYTES % (AUTO) 15.1 % (20.0-45.0); MEAN CORPUSCULAR VOLUME 99 FL (80-99); NEUTROPHILS % (AUTO) 70.4 % (45.0-75.0); PLATELET COUNT 128 K/UL (150-450); RED BLOOD COUNT 2.95 M/UL (4.70-6.10); RED CELL DISTRIBUTION WIDTH 12.1 % (11.6-14.8); WHITE BLOOD COUNT 7.4 K/UL (4.8-10.8)
[2017-09-12 08:40] LABS: ANION GAP 11 mmol/L (5-15); BLOOD UREA NITROGEN 24 mg/dL (7-18); CALCIUM 7.7 MG/DL (8.5-10.1); CARBON DIOXIDE 21 MMOL/L (21-32); CHLORIDE 107 MMOL/L (98-107); CREATININE 0.9 MG/DL (0.55-1.30); SODIUM 139 MMOL/L (136-145)
[2017-09-12] MEDS: Losartan 25mg tab ORAL SCH (09:33)
[2017-09-12] MEDS: Metoprolol Succinate XL 50mg tab ORAL SCH ×2 (09:34→21:51)
[2017-09-12] MEDS: Milk of Magnesia 30ml Ud ORAL PRN (09:34)
--- NOTE | 2017-09-12 11:03 | Urology Progress Note ---
Assessment/Plan Assessment/Plan 1. Gross hematuria. 2. Bladder mass, rule out bladder carcinoma. 3. Pyuria. 4. Proteinuria. 5. Urinary retention. 6. POD # 2, cysto/TURBT doing better I personally hand irrigated souza minimal clots no active bleeding now keep souza for now abx as ordered f/u on path d/w pt fully Subjective Allergies: Coded Allergies: No Known Allergies (Unverified , 09/08/17) Subjective all noted, feels fair, nurses hand irrigated souza Objective Last 24 Hour Vital Signs Date Time Temp Pulse Resp B/P (MAP) Pulse Ox O2 Delivery O2 Flow Rate FiO2 09/12/17 09:34 71 121/53 09/12/17 09:33 121/53 09/12/17 08:00 97.6 57 20 121/53 100 Room Air 09/12/17 04:00 96.4 75 20 136/83 20 Room Air 09/12/17 04:00 76 09/12/17 00:00 97.2 85 20 132/77 98 Room Air 09/12/17 00:00 84 09/11/17 21:15 91 135/66 09/11/17 20:00 97.5 77 20 142/75 97 Room Air 09/11/17 20:00 84 09/11/17 16:00 91 09/11/17 16:00 96.3 75 20 135/66 100 Nasal Cannula 2.0 09/11/17 12:00 88 09/11/17 12:00 98.1 77 20 142/50 96 Nasal Cannula 2.0 Intake and Output 09/11/17 09/12/17 19:00 07:00 Intake Total 1350 ml 240 ml Output Total 600 ml 425 ml Balance 750 ml -185 ml Intake Oral 1350 ml 240 ml Output Urine Total 600 ml 425 ml Microbiology Date/Time Source Procedure Growth Status 09/09/17 17:10 Straight Cath Urine Culture - Final NO GROWTH AFTER 48 HOURS Complete Current Medications Medications (Trade) Dose Ordered Sig/Josselin Route PRN Reason Start Time Stop Time Status Last Admin Dose Admin Acetaminophen (Tylenol) 650 mg Q4H PRN ORAL Mild Pain/Temp > 100.5 09/09/17 21:00 10/09/17 00:59 Atorvastatin Calcium (Lipitor) 10 mg BEDTIME ORAL 09/09/17 21:00 10/09/17 20:59 09/11/17 21:14 Ceftriaxone Sodium 1 gm/ Dextrose 55 ml @ 110 mls/hr Q24H IVPB 09/09/17 21:00 09/16/17 20:59 09/11/17 21:17 Dextrose (Dextrose 50%) STAT PRN IV Hypoglycemia 09/10/17 01:00 10/09/17 00:59 Losartan Potassium (Cozaar) 25 mg DAILY ORAL 09/10/17 09:00 10/10/17 08:59 09/12/17 09:33 Magnesium Hydroxide (Mom) 30 ml BIDPRN PRN ORAL Constipation 09/11/17 13:00 10/11/17 12:59 09/12/17 09:34 Metoprolol Succinate (Toprol XL) 50 mg Q12HR ORAL 09/10/17 21:00 10/10/17 20:59 09/12/17 09:34 Morphine Sulfate (Morphine Sulfate) 2 mg Q4H PRN IVP MOD-SEVERE PAIN 4-10 09/09/17 21:00 09/16/17 00:59 09/12/17 05:22 Ondansetron HCl (Zofran) 4 mg Q6H PRN IVP Nausea & Vomiting 09/09/17 19:00 10/09/17 00:59 Potassium Chloride 10 meq/ Dextrose/Sodium Chloride 1,005 ml @ 75 mls/hr [id number] IV 09/09/17 19:00 10/09/17 12:59 09/12/17 00:49 Laboratory Tests 09/12/17 07:50: White Blood Count 7.4, Red Blood Count 2.95L, Hemoglobin 9.7L, Hematocrit 29.1L , Mean Corpuscular Volume 99, Mean Corpuscular Hemoglobin 32.8H, Mean Corpuscular Hemoglobin Concent 33.3, Red Cell Distribution Width 12.1, Platelet Count 128L, Mean Platelet Volume 8.5, Neutrophils (%) (Auto) 70.4, Lymphocytes ( %) (Auto) 15.1L, Monocytes (%) (Auto) 12.0H, Eosinophils (%) (Auto) 1.4, Basophils (%) (Auto) 1.2, Sodium Level 139, Potassium Level 4.0, Chloride Level 107, Carbon Dioxide Level 21, Anion Gap 11, Blood Urea Nitrogen 24H, Creatinine 0.9, Estimat Glomerular Filtration Rate , Glucose Level 120H, Calcium Level 7.7L Height (Feet): 5 Height (Inches): 6.00 Weight (Pounds): 160 Objective urine is marylou NICHELLE AGUIRRE Sep 12, 2017 11:03
[2017-09-12 12:00] VITALS: BP 145/55
--- NOTE | 2017-09-12 12:15 | Nephrology Progress Note ---
Assessment/Plan Problem List: (1) Bladder mass (2) Hematuria Assessment: resolving (3) Urinary retention (4) HTN (hypertension) (5) Arrhythmia Plan s/p TURP. monitor labs. d/w Dr. Vegas and Dr. Lorenz. cont souza for now. hemeonc following. f/u patholgy. cont empiric abx. transfer to [facility]. d/w cardio regarding eliquis. Subjective Subjective s/p TURP. doing well. hematuria resolving. Objective Objective Last 24 Hour Vital Signs Date Time Temp Pulse Resp B/P (MAP) Pulse Ox O2 Delivery O2 Flow Rate FiO2 09/12/17 09:34 71 121/53 09/12/17 09:33 121/53 09/12/17 08:00 97.6 57 20 121/53 100 Room Air 09/12/17 04:00 96.4 75 20 136/83 20 Room Air 09/12/17 04:00 76 09/12/17 00:00 97.2 85 20 132/77 98 Room Air 09/12/17 00:00 84 09/11/17 21:15 91 135/66 09/11/17 20:00 97.5 77 20 142/75 97 Room Air 09/11/17 20:00 84 09/11/17 16:00 91 09/11/17 16:00 96.3 75 20 135/66 100 Nasal Cannula 2.0 Intake and Output 09/11/17 09/12/17 19:00 07:00 Intake Total 1350 ml 240 ml Output Total 600 ml 425 ml Balance 750 ml -185 ml Intake Oral 1350 ml 240 ml Output Urine Total 600 ml 425 ml Laboratory Tests 09/12/17 07:50: White Blood Count 7.4, Red Blood Count 2.95L, Hemoglobin 9.7L, Hematocrit 29.1L , Mean Corpuscular Volume 99, Mean Corpuscular Hemoglobin 32.8H, Mean Corpuscular Hemoglobin Concent 33.3, Red Cell Distribution Width 12.1, Platelet Count 128L, Mean Platelet Volume 8.5, Neutrophils (%) (Auto) 70.4, Lymphocytes ( %) (Auto) 15.1L, Monocytes (%) (Auto) 12.0H, Eosinophils (%) (Auto) 1.4, Basophils (%) (Auto) 1.2, Sodium Level 139, Potassium Level 4.0, Chloride Level 107, Carbon Dioxide Level 21, Anion Gap 11, Blood Urea Nitrogen 24H, Creatinine 0.9, Estimat Glomerular Filtration Rate , Glucose Level 120H, Calcium Level 7.7L Height (Feet): 5 Height (Inches): 6.00 Weight (Pounds): 160 General Appearance: no apparent distress Cardiovascular: normal rate, regular rhythm Respiratory/Chest: lungs clear Abdomen: non tender, soft Extremities: non-pitting Neurologic: alert, oriented x 3 JO-ANN GONZALEZ Sep 12, 2017 12:15
--- NOTE | 2017-09-12 14:47 | Diagnostic Imaging Report ---
Indication: Shortness of breath Technique: XRAY Chest 1v Comparison: None Findings: The cardiac silhouette is markedly enlarged. Linear atelectasis or scarring is noted in the lung bases. Atherosclerotic changes are seen. Impression: Markedly enlarged cardiac silhouette. Atherosclerotic changes. Linear atelectasis or scarring in the lung bases.
--- NOTE | 2017-09-12 14:47 | Diagnostic Imaging Report ---
Indication: Abdominal pain Technique: CT scan of the abdomen and pelvis utilizing automated exposure control without intravenous or oral contrast. Axial, sagittal and coronal images were obtained. CT dose: Total DLP 457 mGycm; CTDI vol 9.3 mGy Comparison: None Findings: Evaluation of the solid organs is limited without intravenous contrast material. There is atelectasis or scarring in the lung bases. The heart is markedly enlarged. There is a small pericardial effusion. The liver is slightly nodular. Gallstones are present. The adrenal glands are unremarkable. There is no hydronephrosis. No renal or ureteral calculi are seen. The spleen and pancreas are unremarkable. There is limited evaluation of the bowel without oral contrast. The small bowel loops are normal in caliber. The appendix is normal. There is no free intraperitoneal fluid or air. Prostate calcifications are seen. There is heterogeneous high density within the right posterior bladder wall grossly measuring 2.9 x 5.5 cm. Chronic appearing right 12th rib fracture deformity is present. Degenerative changes of the spine are seen. Impression: Heterogeneous hyperdense mass of the right bladder measuring 2.9 x 5.5 cm could represent hemorrhage/clot. Underlying bladder mass cannot be excluded. Further evaluation with cystoscopy recommended as indicated. Slightly nodular appearance of the liver suggestive of chronic hepatocellular disease. Clinical correlation recommended. Severe cardiomegaly. Small pericardial effusion. Atherosclerotic changes. Other findings as above. The CT scanner at [facility] is accredited by the [employer] and the scans are performed using protocols designed to limit radiation exposure to as low as reasonably achievable to attain images of sufficient resolution adequate for diagnostic evaluation.
--- NOTE | 2017-09-12 14:49 | Infectious Diseases Prog Note ---
Assessment/Plan Problems: (1) Pyelonephritis Assessment & Plan: with negative urine culture , continue ceftriaxon empiric coverage, CT abdomen ruled out abscess and stone, but showed bladder mass, S/ P cystoscopy/TURBT and biopsy pending (2) Hematuria Assessment & Plan: rule out malignancy , had cystoscopy by urologist for further evaluation, suspect malignant process (3) Urinary retention Assessment & Plan: due to bladder obstruction via mass , S/P cystoscopy and mass biopsy of the bladder Subjective Constitutional: Reports: no symptoms HEENT: Reports: no symptoms Respiratory: Reports: no symptoms Breasts: Reports: no symptoms Cardiovascular: Reports: no symptoms Gastrointestinal/Abdominal: Reports: constipation Genitourinary: Reports: no symptoms Neurologic: Reports: no symptoms Psychiatric: Reports: no symptoms Skin: Reports: no symptoms Endocrine: Reports: no symptoms Hematologic: Reports: no symptoms Musculoskeletal: Reports: no symptoms Allergies: Coded Allergies: No Known Allergies (Unverified , 09/08/17) Subjective he had cystoscopy yesterday with bladder mass biopsy , urine looks clear now Objective Vital Signs Last 24 Hour Vital Signs Date Time Temp Pulse Resp B/P (MAP) Pulse Ox O2 Delivery O2 Flow Rate FiO2 09/12/17 09:34 71 121/53 09/12/17 09:33 121/53 09/12/17 08:00 97.6 57 20 121/53 100 Room Air 09/12/17 04:00 96.4 75 20 136/83 20 Room Air 09/12/17 04:00 76 09/12/17 00:00 97.2 85 20 132/77 98 Room Air 09/12/17 00:00 84 09/11/17 21:15 91 135/66 09/11/17 20:00 97.5 77 20 142/75 97 Room Air 09/11/17 20:00 84 09/11/17 16:00 91 09/11/17 16:00 96.3 75 20 135/66 100 Nasal Cannula 2.0 Height (Feet): 5 Height (Inches): 6.00 Weight (Pounds): 160 General Appearance: WD/WN, no acute distress HEENT: normocephalic, atraumatic, anicteric, mucous membranes moist, PERRL, EOMI, pharynx normal, supple, no JVD Respiratory/Chest: chest wall non-tender, lungs clear, normal breath sounds, no respiratory distress, no accessory muscle use Cardiovascular: normal peripheral pulses, normal rate, regular rhythm, no gallop/murmur, no JVD Abdomen: normal bowel sounds, soft, non tender, no organomegaly, non distended , no mass, no scars Extremities: no cyanosis, no clubbing Skin: no rash, no lesions, no ulcers Neurologic/Psychiatric: alert, oriented x 3, responsive Microbiology Date/Time Source Procedure Growth Status 09/09/17 17:10 Straight Cath Urine Culture - Final NO GROWTH AFTER 48 HOURS Complete Laboratory Tests Test 09/12/17 07:50 White Blood Count 7.4 K/UL (4.8-10.8) Red Blood Count 2.95 M/UL (4.70-6.10) L Hemoglobin 9.7 G/DL (14.2-18.0) L Hematocrit 29.1 % (42.0-52.0) L Mean Corpuscular Volume 99 FL (80-99) Mean Corpuscular Hemoglobin 32.8 PG (27.0-31.0) H Mean Corpuscular Hemoglobin Concent 33.3 G/DL (32.0-36.0) Red Cell Distribution Width 12.1 % (11.6-14.8) Platelet Count 128 K/UL (150-450) L Mean Platelet Volume 8.5 FL (6.5-10.1) Neutrophils (%) (Auto) 70.4 % (45.0-75.0) Lymphocytes (%) (Auto) 15.1 % (20.0-45.0) L Monocytes (%) (Auto) 12.0 % (1.0-10.0) H Eosinophils (%) (Auto) 1.4 % (0.0-3.0) Basophils (%) (Auto) 1.2 % (0.0-2.0) Sodium Level 139 MMOL/L (136-145) Potassium Level 4.0 MMOL/L (3.5-5.1) Chloride Level 107 MMOL/L (98-107) Carbon Dioxide Level 21 MMOL/L (21-32) Anion Gap 11 mmol/L (5-15) Blood Urea Nitrogen 24 mg/dL (7-18) H Creatinine 0.9 MG/DL (0.55-1.30) Estimat Glomerular Filtration Rate mL/min (>60) Glucose Level 120 MG/DL (74-106) H Calcium Level 7.7 MG/DL (8.5-10.1) L Current Medications Medications (Trade) Dose Ordered Sig/Josselin Route PRN Reason Start Time Stop Time Status Last Admin Dose Admin Acetaminophen (Tylenol) 650 mg Q4H PRN ORAL Mild Pain/Temp > 100.5 09/09/17 21:00 10/09/17 00:59 Atorvastatin Calcium (Lipitor) 10 mg BEDTIME ORAL 09/09/17 21:00 10/09/17 20:59 09/11/17 21:14 Ceftriaxone Sodium 1 gm/ Dextrose 55 ml @ 110 mls/hr Q24H IVPB 09/09/17 21:00 09/16/17 20:59 09/11/17 21:17 Dextrose (Dextrose 50%) STAT PRN IV Hypoglycemia 09/10/17 01:00 10/09/17 00:59 Losartan Potassium (Cozaar) 25 mg DAILY ORAL 09/10/17 09:00 10/10/17 08:59 09/12/17 09:33 Magnesium Hydroxide (Mom) 30 ml BIDPRN PRN ORAL Constipation 09/11/17 13:00 10/11/17 12:59 09/12/17 09:34 Metoprolol Succinate (Toprol XL) 50 mg Q12HR ORAL 09/10/17 21:00 10/10/17 20:59 09/12/17 09:34 Morphine Sulfate (Morphine Sulfate) 2 mg Q4H PRN IVP MOD-SEVERE PAIN 4-10 09/09/17 21:00 09/16/17 00:59 09/12/17 05:22 Ondansetron HCl (Zofran) 4 mg Q6H PRN IVP Nausea & Vomiting 09/09/17 19:00 10/09/17 00:59 Potassium Chloride 10 meq/ Dextrose/Sodium Chloride 1,005 ml @ 75 mls/hr [id number] IV 09/09/17 19:00 10/09/17 12:59 09/12/17 13:28 Michelle Villarreal M.D. Sep 12, 2017 14:49
--- NOTE | 2017-09-12 15:32 | Cardiac Electrophysiology PN ---
Assessment/Plan Assessment/Plan 1. Hypertension. Toprol 50 bid. On Cozaar 25 mg daily. 2. Atrial fibrillation. Off anticoagulation in view of active hematuria and S/ P TURP and TURBT. Toprol 50 mg bid for tachycardia. Resume anticoagulation when OK with Dr Vegas 3. Active hematuria. S/P TURBT and TURP by Dr Vegas. Also on antibiotic per Dr. Villarreal for pyelonephritis. DW RN Subjective Subjective No further hematuria with [place] in place. In atrial fib with controlled rate Objective Last 24 Hour Vital Signs Date Time Temp Pulse Resp B/P (MAP) Pulse Ox O2 Delivery O2 Flow Rate FiO2 09/12/17 12:00 106 09/12/17 12:00 98.2 83 20 145/55 97 Room Air 09/12/17 09:34 71 121/53 09/12/17 09:33 121/53 09/12/17 08:00 78 09/12/17 08:00 97.6 57 20 121/53 100 Room Air 09/12/17 04:00 96.4 75 20 136/83 20 Room Air 09/12/17 04:00 76 09/12/17 00:00 97.2 85 20 132/77 98 Room Air 09/12/17 00:00 84 09/11/17 21:15 91 135/66 09/11/17 20:00 97.5 77 20 142/75 97 Room Air 09/11/17 20:00 84 09/11/17 16:00 91 09/11/17 16:00 96.3 75 20 135/66 100 Nasal Cannula 2.0 Intake and Output 09/11/17 09/12/17 19:00 07:00 Intake Total 1350 ml 240 ml Output Total 600 ml 425 ml Balance 750 ml -185 ml Intake Oral 1350 ml 240 ml Output Urine Total 600 ml 425 ml Laboratory Tests Test 09/12/17 07:50 White Blood Count 7.4 K/UL (4.8-10.8) Red Blood Count 2.95 M/UL (4.70-6.10) L Hemoglobin 9.7 G/DL (14.2-18.0) L Hematocrit 29.1 % (42.0-52.0) L Mean Corpuscular Volume 99 FL (80-99) Mean Corpuscular Hemoglobin 32.8 PG (27.0-31.0) H Mean Corpuscular Hemoglobin Concent 33.3 G/DL (32.0-36.0) Red Cell Distribution Width 12.1 % (11.6-14.8) Platelet Count 128 K/UL (150-450) L Mean Platelet Volume 8.5 FL (6.5-10.1) Neutrophils (%) (Auto) 70.4 % (45.0-75.0) Lymphocytes (%) (Auto) 15.1 % (20.0-45.0) L Monocytes (%) (Auto) 12.0 % (1.0-10.0) H Eosinophils (%) (Auto) 1.4 % (0.0-3.0) Basophils (%) (Auto) 1.2 % (0.0-2.0) Sodium Level 139 MMOL/L (136-145) Potassium Level 4.0 MMOL/L (3.5-5.1) Chloride Level 107 MMOL/L (98-107) Carbon Dioxide Level 21 MMOL/L (21-32) Anion Gap 11 mmol/L (5-15) Blood Urea Nitrogen 24 mg/dL (7-18) H Creatinine 0.9 MG/DL (0.55-1.30) Estimat Glomerular Filtration Rate mL/min (>60) Glucose Level 120 MG/DL (74-106) H Calcium Level 7.7 MG/DL (8.5-10.1) L Microbiology Date/Time Source Procedure Growth Status 09/09/17 17:10 Straight Cath Urine Culture - Final NO GROWTH AFTER 48 HOURS Complete Objective HEAD AND NECK: No JVD. LUNGS: Clear. CARDIOVASCULAR: Irregular S1 and S2 with no gallop or murmur. ABDOMEN: Soft and nontender. EXTREMITIES: No pitting edema. GENITOURINARY: He has a [place] catheter . ANIYAH LANGLEY Sep 12, 2017 15:32
[2017-09-12 16:00] VITALS: BP 137/61
[2017-09-12] MEDS: cefTRIAXone 1 GM in D5W 55 ML IVPB SCH (20:20)
[2017-09-12] MEDS ORDERED: Morphine Sulfate 2mg/ml Inj IVP PRN (21:30)
[2017-09-12] MEDS ORDERED: Milk of Magnesia 30ml Ud ORAL PRN (21:30)
--- NOTE | 2017-09-12 23:08 | General Progress Note ---
Assessment/Plan Status: stable, unchanged Assessment/Plan 1. Bladder mass bleeding. The patient is status post TURP. At this time, recommended to obtain CT scan as well as follow up pathology report. CT scan has been ordered. --> CT scan still pending 2. Anemia secondary to hematuria. Continue to closely monitor. Hemoglobin goal is above 7. --> Blood transfusion not required today as hgb above goal 3. Urinary retention due to mass. 4. Proteinuria. 5. History of pyuria. Continue to monitor as well. 6. Pyelonephritis and urinary retention. Continue on antibiotics. Subjective Date patient seen: Sep 12, 2017 Constitutional: Denies: no symptoms, chills, diaphoresis, fever, malaise, weakness, other HEENT: Denies: no symptoms, eye pain, blurred vision, tearing, double vision, ear pain, ear discharge, nose pain, nose congestion, throat pain, throat swelling, mouth pain, mouth swelling, other Cardiovascular: Denies: no symptoms, chest pain, edema, irregular heart rate, lightheadedness, palpitations, syncope, other Respiratory: Denies: no symptoms, cough, orthopnea, shortness of breath, SOB with excertion, SOB at rest, sputum, stridor, wheezing, other Gastrointestinal/Abdominal: Denies: no symptoms, abdomen distended, abdominal pain, black stools, tarry stools, blood in stool, constipated, diarrhea, difficulty swallowing, nausea, poor appetite, poor fluid intake, rectal bleeding , vomiting, other Genitourinary: Denies: no symptoms, burning, discharge, frequency, flank pain, hematuria, incontinence, pain, urgency, other Allergies: Coded Allergies: No Known Allergies (Unverified , 09/08/17) Subjective Vitals are stable. No chills. On pain management. H/H stable. Hematochezia detected. Objective Last 24 Hour Vital Signs Date Time Temp Pulse Resp B/P (MAP) Pulse Ox O2 Delivery O2 Flow Rate FiO2 09/12/17 21:51 98 138/66 09/12/17 20:00 Room Air 09/12/17 16:00 98.0 64 20 137/61 97 Room Air 09/12/17 12:00 106 09/12/17 12:00 98.2 83 20 145/55 97 Room Air 09/12/17 09:34 71 121/53 09/12/17 09:33 121/53 09/12/17 08:00 78 09/12/17 08:00 97.6 57 20 121/53 100 Room Air 09/12/17 04:00 96.4 75 20 136/83 20 Room Air 09/12/17 04:00 76 09/12/17 00:00 97.2 85 20 132/77 98 Room Air 09/12/17 00:00 84 Intake and Output 09/11/17 09/12/17 19:00 07:00 Intake Total 1350 ml 240 ml Output Total 600 ml 425 ml Balance 750 ml -185 ml Intake Oral 1350 ml 240 ml Output Urine Total 600 ml 425 ml Laboratory Tests 09/12/17 07:50: White Blood Count 7.4, Red Blood Count 2.95L, Hemoglobin 9.7L, Hematocrit 29.1L , Mean Corpuscular Volume 99, Mean Corpuscular Hemoglobin 32.8H, Mean Corpuscular Hemoglobin Concent 33.3, Red Cell Distribution Width 12.1, Platelet Count 128L, Mean Platelet Volume 8.5, Neutrophils (%) (Auto) 70.4, Lymphocytes ( %) (Auto) 15.1L, Monocytes (%) (Auto) 12.0H, Eosinophils (%) (Auto) 1.4, Basophils (%) (Auto) 1.2, Sodium Level 139, Potassium Level 4.0, Chloride Level 107, Carbon Dioxide Level 21, Anion Gap 11, Blood Urea Nitrogen 24H, Creatinine 0.9, Estimat Glomerular Filtration Rate , Glucose Level 120H, Calcium Level 7.7L Height (Feet): 5 Height (Inches): 6.00 Weight (Pounds): 160 General Appearance: no apparent distress EENT: normal ENT inspection Neck: supple Cardiovascular: normal rate, regular rhythm Respiratory/Chest: lungs clear, normal breath sounds Abdomen: non tender, no organomegaly Jose Sam Sep 12, 2017 23:08
[2017-09-12 23:56] VITALS: BP 139/70
[2017-09-13 04:00] VITALS: BP 140/69
[2017-09-13 08:00] VITALS: BP 138/68
[2017-09-13] MEDS ORDERED: Losartan 25mg tab ORAL SCH (09:00)
[2017-09-13] MEDS: Metoprolol Succinate XL 50mg tab ORAL SCH (10:13)
--- NOTE | 2017-09-13 11:16 | Urology Progress Note ---
Assessment/Plan Assessment/Plan 1. Gross hematuria. 2. Bladder mass, bladder carcinoma. 3. Pyuria. 4. Proteinuria. 5. Urinary retention. 6. POD # 3, cysto/TURBT doing better I personally hand irrigated souza minimal clots no active bleeding now keep souza for now voiding trial 1-2 days abx as ordered resume eliquis soon? Subjective Allergies: Coded Allergies: No Known Allergies (Unverified , 09/08/17) Subjective all noted, feels fair Objective Last 24 Hour Vital Signs Date Time Temp Pulse Resp B/P (MAP) Pulse Ox O2 Delivery O2 Flow Rate FiO2 09/13/17 10:13 75 139/65 09/13/17 10:13 139/65 09/13/17 08:00 97.3 64 20 138/68 97 Room Air 09/13/17 04:00 98.0 77 20 140/69 99 Room Air 09/13/17 00:00 Room Air 09/12/17 23:56 96.5 66 20 139/70 98 Room Air 09/12/17 21:51 98 138/66 09/12/17 20:00 Room Air 09/12/17 16:00 98.0 64 20 137/61 97 Room Air 09/12/17 12:00 106 09/12/17 12:00 98.2 83 20 145/55 97 Room Air Intake and Output 09/12/17 09/13/17 19:00 07:00 Intake Total 600 ml 960 ml Output Total 800 ml 600 ml Balance -200 ml 360 ml Intake Oral 600 ml 360 ml IV Total 600 ml Output Urine Total 800 ml 600 ml Microbiology Date/Time Source Procedure Growth Status 09/09/17 17:10 Straight Cath Urine Culture - Final NO GROWTH AFTER 48 HOURS Complete Current Medications Medications (Trade) Dose Ordered Sig/Josselin Route PRN Reason Start Time Stop Time Status Last Admin Dose Admin Acetaminophen (Tylenol) 650 mg Q4H PRN ORAL Mild Pain/Temp > 100.5 09/12/17 21:30 10/12/17 21:29 Atorvastatin Calcium (Lipitor) 10 mg BEDTIME ORAL 09/12/17 21:30 10/09/17 21:29 09/12/17 21:50 Bisacodyl (Dulcolax) 10 mg DAILYPRN PRN RECTAL Constipation 09/12/17 21:30 10/12/17 21:29 Ceftriaxone Sodium 1 gm/ Dextrose 55 ml @ 110 mls/hr Q24H IVPB 09/13/17 21:00 09/16/17 20:59 Dextrose (Dextrose 50%) STAT PRN IV Hypoglycemia 09/12/17 21:30 10/12/17 21:29 Losartan Potassium (Cozaar) 25 mg DAILY ORAL 09/13/17 09:00 10/10/17 08:59 09/13/17 10:13 Magnesium Hydroxide (Mom) 30 ml BIDPRN PRN ORAL Constipation 09/12/17 21:30 10/12/17 21:29 09/13/17 04:26 Metoprolol Succinate (Toprol XL) 50 mg Q12HR ORAL 09/12/17 21:30 10/10/17 21:29 09/13/17 10:13 Morphine Sulfate (Morphine Sulfate) 2 mg Q4H PRN IVP PAIN 4-10 09/12/17 21:30 09/19/17 21:29 Ondansetron HCl (Zofran) 4 mg Q6H PRN IVP Nausea & Vomiting 09/12/17 21:30 10/12/17 21:29 Potassium Chloride 10 meq/ Dextrose/Sodium Chloride 1,005 ml @ 75 mls/hr [id number] IV 09/12/17 21:15 10/09/17 12:59 09/12/17 21:50 Height (Feet): 5 Height (Inches): 6.00 Weight (Pounds): 160 Objective urine is marylou path noted, d/w pathologist NICHELLE AGUIRRE Sep 13, 2017 11:16
[2017-09-13 12:00] VITALS: BP 142/69
[2017-09-13] MEDS: Potassium Chloride 10 MEQ in D5 1/2NS 1,000 ML IV SCH (13:44)
--- NOTE | 2017-09-13 13:46 | Infectious Diseases Prog Note ---
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 (2) Hematuria Assessment & Plan: Due to malignancy , had cystoscopy by urologist for further evaluation, with biopsy showed high grade papillary carcinoma , recommend oncology eval (3) Urinary retention Assessment & Plan: due to bladder obstruction via mass , S/P cystoscopy and mass biopsy of the bladder Subjective Constitutional: Reports: no symptoms HEENT: Reports: no symptoms Respiratory: Reports: no symptoms Breasts: Reports: no symptoms Cardiovascular: Reports: no symptoms Gastrointestinal/Abdominal: Reports: diarrhea Genitourinary: Reports: dysuria Neurologic: Reports: no symptoms Psychiatric: Reports: no symptoms Skin: Reports: no symptoms Endocrine: Reports: no symptoms Hematologic: Reports: no symptoms Musculoskeletal: Reports: no symptoms Allergies: Coded Allergies: No Known Allergies (Unverified , 09/08/17) Subjective he had cystoscopy yesterday with bladder mass biopsy , urine looks clear now Objective Vital Signs Last 24 Hour Vital Signs Date Time Temp Pulse Resp B/P (MAP) Pulse Ox O2 Delivery O2 Flow Rate FiO2 09/13/17 10:13 75 139/65 09/13/17 10:13 139/65 09/13/17 08:00 97.3 64 20 138/68 97 Room Air 09/13/17 04:00 98.0 77 20 140/69 99 Room Air 09/13/17 00:00 Room Air 09/12/17 23:56 96.5 66 20 139/70 98 Room Air 09/12/17 21:51 98 138/66 09/12/17 20:00 Room Air 09/12/17 16:00 98.0 64 20 137/61 97 Room Air Height (Feet): 5 Height (Inches): 6.00 Weight (Pounds): 160 General Appearance: WD/WN, no acute distress, cachetic HEENT: normocephalic, atraumatic, anicteric, mucous membranes moist, PERRL Respiratory/Chest: chest wall non-tender, lungs clear, normal breath sounds, no respiratory distress, no accessory muscle use Cardiovascular: normal peripheral pulses, normal rate, regular rhythm, no gallop/murmur, no JVD Abdomen: normal bowel sounds, soft, non tender, no organomegaly, non distended , no mass, no scars Extremities: no cyanosis, no clubbing Skin: no rash, no lesions, no ulcers Neurologic/Psychiatric: alert, responsive Current Medications Medications (Trade) Dose Ordered Sig/Josselin Route PRN Reason Start Time Stop Time Status Last Admin Dose Admin Acetaminophen (Tylenol) 650 mg Q4H PRN ORAL Mild Pain/Temp > 100.5 09/12/17 21:30 10/12/17 21:29 Atorvastatin Calcium (Lipitor) 10 mg BEDTIME ORAL 09/12/17 21:30 10/09/17 21:29 09/12/17 21:50 Bisacodyl (Dulcolax) 10 mg DAILYPRN PRN RECTAL Constipation 09/12/17 21:30 10/12/17 21:29 Ceftriaxone Sodium 1 gm/ Dextrose 55 ml @ 110 mls/hr Q24H IVPB 09/13/17 21:00 09/16/17 20:59 Dextrose (Dextrose 50%) STAT PRN IV Hypoglycemia 09/12/17 21:30 10/12/17 21:29 Losartan Potassium (Cozaar) 25 mg DAILY ORAL 09/13/17 09:00 10/10/17 08:59 09/13/17 10:13 Magnesium Hydroxide (Mom) 30 ml BIDPRN PRN ORAL Constipation 09/12/17 21:30 10/12/17 21:29 09/13/17 04:26 Metoprolol Succinate (Toprol XL) 50 mg Q12HR ORAL 09/12/17 21:30 10/10/17 21:29 09/13/17 10:13 Morphine Sulfate (Morphine Sulfate) 2 mg Q4H PRN IVP PAIN 4-10 09/12/17 21:30 09/19/17 21:29 Ondansetron HCl (Zofran) 4 mg Q6H PRN IVP Nausea & Vomiting 09/12/17 21:30 10/12/17 21:29 Potassium Chloride 10 meq/ Dextrose/Sodium Chloride 1,005 ml @ 75 mls/hr [id number] IV 09/12/17 21:15 10/09/17 12:59 09/12/17 21:50 Michelle Villarreal M.D. Sep 13, 2017 13:46
[2017-09-13 16:00] VITALS: BP 148/71
--- NOTE | 2017-09-13 16:33 | Nephrology Progress Note ---
Assessment/Plan Problem List: (1) S/P TURP (2) Bladder mass (3) Hematuria (4) Pyelonephritis (5) Urinary retention (6) HTN (hypertension) (7) Arrhythmia (8) Urothelial carcinoma Plan Monitor intake and output Monitor urine for bleeding monitor H&H, transfuse prn Continue Abx per ID Hematology/onc following Will f/u with surgeons rec Pain management prn AM labs Subjective Constitutional: Denies: no symptoms, chills, diaphoresis, fever, malaise, weakness, other HEENT: Denies: no symptoms, eye pain, blurred vision, tearing, double vision, ear pain, ear discharge, nose pain, nose congestion, throat pain, throat swelling, mouth pain, mouth swelling, other Genitourinary: Reports: pain Subjective In bed, in no distress, states that he has been having pain when he wants to urinate, urinary catheter noted draining marylou colored urine Objective Objective Last 24 Hour Vital Signs Date Time Temp Pulse Resp B/P (MAP) Pulse Ox O2 Delivery O2 Flow Rate FiO2 09/13/17 10:13 75 139/65 09/13/17 10:13 139/65 09/13/17 08:00 97.3 64 20 138/68 97 Room Air 09/13/17 04:00 98.0 77 20 140/69 99 Room Air 09/13/17 00:00 Room Air 09/12/17 23:56 96.5 66 20 139/70 98 Room Air 09/12/17 21:51 98 138/66 09/12/17 20:00 Room Air Intake and Output 09/12/17 09/13/17 19:00 07:00 Intake Total 600 ml 1035 ml Output Total 800 ml 600 ml Balance -200 ml 435 ml Intake Oral 600 ml 360 ml IV Total 675 ml Output Urine Total 800 ml 600 ml Height (Feet): 5 Height (Inches): 6.00 Weight (Pounds): 160 General Appearance: no apparent distress, alert EENT: normal ENT inspection Neck: normal alignment, supple Cardiovascular: regular rhythm Respiratory/Chest: lungs clear, normal breath sounds, no respiratory distress Abdomen: non tender, soft Genitourinary/Rectal: other - souza Extremities: non-tender, normal inspection, no calf tenderness Neurologic: alert, oriented x 3, responsive, normal mood/affect Egwu,Julianna N.P. Sep 13, 2017 16:33
--- NOTE | 2017-09-13 16:46 | Cardiac Electrophysiology PN ---
Assessment/Plan Assessment/Plan 1. Hypertension. Continue Toprol 50 bid and Cozaar 25 mg daily. 2. Atrial fibrillation. Off anticoagulation in view of active hematuria and S/ P TURP and TURBT. Toprol 50 mg bid for tachycardia. Resume anticoagulation when OK with Dr Vegas 3. Active hematuria. S/P TURBT and TURP by Dr Vegas. Also on antibiotic per Dr. Villarreal for pyelonephritis. BOBBY RN Subjective Subjective No further hematuria with Boston in place. Has dysuria. On Med Surge Objective Last 24 Hour Vital Signs Date Time Temp Pulse Resp B/P (MAP) Pulse Ox O2 Delivery O2 Flow Rate FiO2 09/13/17 10:13 75 139/65 09/13/17 10:13 139/65 09/13/17 08:00 97.3 64 20 138/68 97 Room Air 09/13/17 04:00 98.0 77 20 140/69 99 Room Air 09/13/17 00:00 Room Air 09/12/17 23:56 96.5 66 20 139/70 98 Room Air 09/12/17 21:51 98 138/66 09/12/17 20:00 Room Air Intake and Output 09/12/17 09/13/17 19:00 07:00 Intake Total 600 ml 1035 ml Output Total 800 ml 600 ml Balance -200 ml 435 ml Intake Oral 600 ml 360 ml IV Total 675 ml Output Urine Total 800 ml 600 ml Objective HEAD AND NECK: No JVD. LUNGS: Clear. CARDIOVASCULAR: Irregular S1 and S2 with no gallop or murmur. ABDOMEN: Soft and nontender. EXTREMITIES: No pitting edema. GENITOURINARY: He has a Boston catheter . ANIYAH LANGLEY Sep 13, 2017 16:46
[2017-09-13] MEDS ORDERED: 1/2 NS 1000ml IV ONE (20:39)
[2017-09-13] MEDS ORDERED: Tubing Blood Filter IV ONE (20:39)
[2017-09-13] MEDS ORDERED: NS Irrig 4000ml IRRIG ONE (20:39)
[2017-09-13] MEDS ORDERED: cefTRIAXone 1 GM in D5W 55 ML IVPB SCH (21:00)
--- NOTE | 2017-09-13 23:07 | General Progress Note ---
Assessment/Plan Status: stable Assessment/Plan 1. Bladder mass bleeding. The patient is status post TURP. At this time, recommended to obtain CT scan as well as follow up pathology report. CT scan has been ordered. -->pathology: sections demonatrate multiple fragments of high grade papillary urothelial carcinoma. tumor shows fibrovascular cores lined by thickened urothelium with loss of polarity, cytologic atypia and increased mitotic activity. No lamina propria invasion is noted. muscularis propria is not seen. --> CT abdomen reviewed and revealed severe cardiomegaly and small pericardial effusion. --> S/P cystoscopy 2. Anemia secondary to hematuria. Continue to closely monitor. Hemoglobin goal is above 7. --> Blood transfusion not required today as hgb above goal 3. Urinary retention due to mass. 4. Proteinuria. 5. History of pyuria. Continue to monitor as well. 6. Pyelonephritis and urinary retention. Continue on antibiotics. Subjective Date patient seen: Sep 13, 2017 Constitutional: Denies: no symptoms, chills, diaphoresis, fever, malaise, weakness, other HEENT: Denies: no symptoms, eye pain, blurred vision, tearing, double vision, ear pain, ear discharge, nose pain, nose congestion, throat pain, throat swelling, mouth pain, mouth swelling, other Cardiovascular: Denies: no symptoms, chest pain, edema, irregular heart rate, lightheadedness, palpitations, syncope, other Respiratory: Denies: no symptoms, cough, orthopnea, shortness of breath, SOB with excertion, SOB at rest, sputum, stridor, wheezing, other Gastrointestinal/Abdominal: Denies: no symptoms, abdomen distended, abdominal pain, black stools, tarry stools, blood in stool, constipated, diarrhea, difficulty swallowing, nausea, poor appetite, poor fluid intake, rectal bleeding , vomiting, other Hematologic/Lymphatic: Reports: anemia Allergies: Coded Allergies: No Known Allergies (Unverified , 09/08/17) Subjective Stable. S/P cystoscopy. Pending discharge. Objective Last 24 Hour Vital Signs Date Time Temp Pulse Resp B/P (MAP) Pulse Ox O2 Delivery O2 Flow Rate FiO2 09/13/17 16:00 97.2 62 20 148/71 97 Room Air 09/13/17 12:00 97.8 65 20 142/69 97 Room Air 09/13/17 10:13 75 139/65 09/13/17 10:13 139/65 09/13/17 08:00 97.3 64 20 138/68 97 Room Air 09/13/17 04:00 98.0 77 20 140/69 99 Room Air 09/13/17 00:00 Room Air 09/12/17 23:56 96.5 66 20 139/70 98 Room Air Intake and Output 09/12/17 09/13/17 19:00 07:00 Intake Total 600 ml 1035 ml Output Total 800 ml 600 ml Balance -200 ml 435 ml Intake Oral 600 ml 360 ml IV Total 675 ml Output Urine Total 800 ml 600 ml Height (Feet): 5 Height (Inches): 6.00 Weight (Pounds): 160 Jose Sam Sep 13, 2017 23:07
--- NOTE | 2017-09-14 15:29 | Discharge Summary ---
Discharge Summary Hospital Course Date of Admission Sep 08, 2017 at 23:04 Date of Discharge Sep 13, 2017 at 20:40 Admitting Diagnosis hematuria HPI Farnaz Mendoza is a 87 year old male who was admitted on Sep 08, 2017 at 23:04 for Hematuria Hospital Course [id number] Discharge Discharge Disposition Patient was discharged to SNF/Subacute Facility(03) Discharge Diagnoses: Angeli Daniels NP Sep 14, 2017 15:29
--- NOTE | 2017-09-14 19:31 | Discharge Summary 2 SIG ---
DATE OF ADMISSION: 09/08/2017 DATE OF DISCHARGE: 09/13/2017 CONSULTANTS: 1. Jesse Vegas M.D. 2. Michelle Villarreal M.D. 3. Dimitrios Tirado M.D. 4. Jose Sam M.D. BRIEF HOSPITAL COURSE: The patient is an 87-year-old male with medical history significant for hypertension, dyslipidemia and cardiac arrhythmia who presented to ED complaining of abdominal pain. He reported hematuria and urinary retention. Per family, he had history of renal stones. On evaluation at ED, CT scan of the abdomen and pelvis showed bladder mass. Boston catheter was inserted and had gross hematuria. He was then admitted and underwent urological evaluation with Dr. Vegas. Boston catheter was occluded and was unable to be irrigated. A 24-[place] catheter was then inserted by urologist and bladder irrigation was done. He was placed on continuous bladder irrigation. He was started empirically on ceftriaxone pending culture. Dr. Tirado was consulted. The patient had atrial fibrillation and underwent preop evaluation. He was then transferred to telemetry. He was continued on Toprol-XL 50 mg and Cozaar 25 mg daily. He had been off anticoagulation. On 09/10/2017, he underwent cystoscopy with clot evacuation, transurethral resection of bladder tumor and prostate. Urine culture did not isolate any growth. Pathology report showed high-grade papillary urothelial carcinoma, which is noninvasive. There was no muscularis propria identified. Hematuria eventually cleared. There was no active bleeding noted. He was eventually discharged to a long term with Boston catheter. Advised to follow up with urologist as outpatient. FINAL DIAGNOSES: 1. Hematuria secondary to bladder mass status post cystoscopy with transurethral resection of prostate. 2. Acute pyelonephritis. 3. Urinary retention. 4. Atrial fibrillation. 5. Hypertension. 6. Anemia secondary to hematuria. 7. Proteinuria. 8. Status post cystoscopy urethral calibration, clot evacuation, transurethral resection of bladder tumor and prostate and bilateral retrograde pyelogram on 09/10/2017. DISPOSITION: The patient was discharged to [facility] under the care of Dr. Mikel Castellanos. DISCHARGE INSTRUCTIONS: Follow up with urologist and telecommunications network planner in a week. Cruz Lorenz M.D. I have been assigned to dictate discharge summary on this account and I was not involved in the patient's management. Angeli Daniels N.P. DR: ALEXUS JOB#: [id number] CC: BONNIE
--- NOTE | 2017-09-18 11:11 | Cardiology Report ---
APPROVED REPORT EXAM: Two-dimensional and M-mode echocardiogram with Doppler and color Doppler. INDICATION Pre-Op M-Mode DIMENSIONS IVSd0.6 (0.7-1.1cm)Left Atrium (MM)5.0 (1.6-4.0cm) LVDd5.5 (3.5-5.6cm)Aortic Root2.7 (2.0-3.7cm) PWd0.8 (0.7-1.1cm)Aortic Cusp Exc.1.1 (1.5-2.0cm) LVDs4.3 (2.5-4.0cm) PWs0.9 cm Normal left ventricular chamber size, systolic function and wall motion. Left ventricular ejection fraction estimated to be 55-60 %. No evidence of left ventricular hypertrophy. Small posterior pericardial effusion. Mild bi-atrial enlargement by 2D. Focal aortic valve sclerosis with adequate cusp excursion. Thickened mitral valve leaflets with normal excursion. Mild mitral annulus and aortic root calcification. Hockey stick is seen consisting of mitral stenosis. Pulmonic valve not well visualized. Normal tricuspid valve structure. IVC dilated at 2.3 cm non-collapsible with respiration indicate increased RA pressure. A color flow and spectral Doppler study was performed and revealed: Mild aortic regurgitation. Peak aortic valve gradient of 35mmHg and a mean of 17 mmHg. Aortic valve area 0.8 cm2 calculated by continuity equation. Severe mitral regurgitation. Peak mitral valve diastolic gradient of 9mmHg and a mean gradient of 4mmHg Severe tricuspid regurgitation. Tricuspid systolic velocities suggests peak right ventricular systolic pressure of 57mmHg Consistent with severe pulmonary hypertension. Pulmonic regurgitation present.
== END 2017-09-13 20:40 | DRG 666 ==
LOC: EDBD 21:57 → EDBEDREQ 22:23 → EMR 22:30 → 3E 23:04 → EDBEDREQ 23:28 → 3E 09-09 01:44 → 2E 09-09 17:05 → 4E 09-12 20:38
DX: C67.9 Malignant neoplasm of bladder, unspecified (principal); N10 Acute pyelonephritis; I48.91 Unspecified atrial fibrillation; D50.0 Iron deficiency anemia secondary to blood loss (chronic); R31.0 Gross hematuria; N13.9 Obstructive and reflux uropathy, unspecified; I10 Essential (primary) hypertension; E78.5 Hyperlipidemia, unspecified; I25.10 Atherosclerotic heart disease of native coronary artery without angina pectoris; Z79.01 Long term (current) use of anticoagulants; R33.8 Other retention of urine; I49.9 Cardiac arrhythmia, unspecified; N42.9 Disorder of prostate, unspecified
CPT/HCPCS: 36415; 71045; 74018; 74176; 76000; 80048; 80053; 81003; 82248; 83690; 85025; 85610; 85730; 86850; 86900; 86901; 86920; 87086; 93005; 93306; 94003; 94150; 99285; J2250; J2710